=== PATIENT | male | born 1935 | race Caucasian/White ===

== ENCOUNTER 2016-06-09 01:50 | Observation (INO) | payer OTHER ==
[~2016-06-09] VITALS: Ht 175.3 cm; Wt 112.3 kg
[~2016-06-09 01:50] MED LIST: ACT15 PO; AMLO-114 PO; ASPI325T39 PO; ATOR-24 PO; CARV25TA PO; CYCL10TA6 PO; DVN/160 PO; ERGO1CAP35 PO; ESOM1CAP34 PO; FRRS300 PO; FURO-85 PO; KETO0.0216 OP; MAGN400T6 PO; METF-384 PO; OXYC-643 PO; PARO1TAB29 PO; POTA20TA16 PO; TERA1CAP PO
[2016-06-09] MEDS ORDERED: NITROGLYCERIN OINT 2% 1GM PACKET EXT STA (02:02)
[2016-06-09 02:14] LABS: HEMATOCRIT 33.2 % (42-52); MEAN CELL VOLUME 82.4 fL (80-100); MEAN CORPUSCULAR HEMOGLOBIN 28.8 pg (25-34); MEAN CORPUSCULAR HGB CONC 34.9 g/dl (32-36); MEAN PLATELET VOLUME 8.9 fL (7.4-10.4); PLATELET COUNT 291 K/uL (130-400); RED BLOOD COUNT 4.03 M/uL (4.7-6.1); WHITE BLOOD COUNT 8.64 K/uL (4.8-10.8)
[2016-06-09 02:24] LABS: PARTIAL THROMBOPLASTIN RATIO 0.9; PROTHROMBIN TIME (PATIENT) 10.6 SECONDS (9.0-12.0)
--- NOTE | 2016-06-09 02:26 | EMERGENCY ROOM VISIT NOTE ---
History Report prepared by Rocio: Mohsen Mcdonald Under the Supervision of: Dr. Delbert Dickerson M.D. 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 The patient's pain has resolved at this time. He states that he has been having intermittent chest pain for the past week. His pain tonight went into his left chest and radiated into his left shoulder. His pain lasted for about an hour. He rated his pain at that time an 8/10 in severity. He states that he thinks the Aspirin caused the pain to go away. He took two nitroglycerin and 2 baby ASA MINE SAFETY DIRECTOR, and he was given two Aspirin in the ambulance. He is short of breath at his baseline, and was planning on going to [place] to be evaluated. He states that his pain usually occurs when he is walking to get his mail. He denies any diaphoresis or nausea. He notes that he has not had an appetite over the past two months. Source of History: patient Onset: tonight Position: chest (left) Symptom Intensity: 0/10 Quality: other (Resolved) Timing: resolved Modifying Factors (Worsening): movement Associated Symptoms: + SOB, No diaphoresis, No nausea Review of Systems See HPI for pertinent positives & negatives. A total of 10 systems reviewed and were otherwise negative. Past Medical & Surgical Medical Problems: (1) Chest pain (2) COPD (chronic obstructive pulmonary disease) (3) Umbilical hernia Family History Omitted secondary to age. Social History Smoking Status: Never Smoker Alcohol Use: none Drug Use: none Marital Status: Housing Status: lives with family Occupation Status: retired Current/Historical Medications Scheduled Acetaminophen (Tylenol), 500 MG PO BID Aspirin (Aspirin Ec), 325 MG PO DAILY Atorvastatin (Lipitor), 20 MG PO DAILY Carvedilol (Coreg), 25 MG PO Q12 Cyanocobalamin (Cyanocobalamin), 1 ML INJ MONTHLY Ergocalciferol (Vitamin D Cap), 50,000 INTER.UNIT PO WK Esomeprazole Magnesium (Esomeprazole Magnesium), 40 MG PO DAILY Fenofibrate (Tricor), 48 MG PO DAILY Ferrous Sulfate (Ferrous Sulfate), 325 MG PO BID Furosemide (Lasix), 40 MG PO DAILY Insulin Human Regular (Humulin R), 10 UNITS SQ DAILY Levothyroxine Sodium (Levothyroxine Sodium), 175 MCG PO DAILY Magnesium Oxide (Mag-Ox), 420 MG PO DAILY Metformin Hcl (Glucophage), 1,000 MG PO BIDM Nitroglycerin (Nitrostat), 0.4 MG UT PRN Oxycodone/Acetaminophen 5MG/325MG (Oxycodone/Acetaminophen 5MG/325MG), 1 TABLET PO Q4H Paroxetine (Paxil), 40 MG PO DAILY Paroxetine (Paxil), 20 MG PO DAILY Pioglitazone (Actos), 15 MG PO DAILY Potassium Ext Rel (Klor-Con), 20 MEQ PO DAILY Ranitidine (Zantac), 150 MG PO BID Tamsulosin Hcl (Flomax), 0.4 MG PO HS Scheduled PRN Cyclobenzaprine Hcl (Flexeril), 10 MG PO Q8 PRN for BACK SPASMS Ketotifen Fumarate 0.025% Oph (Zaditor 0.025% Oph), 1 DROP OP Q12H PRN for ALLERGIES Oxycodone/Acetaminophen 5MG/325MG (Percocet 5MG/325MG), 1 TABLET PO Q6H PRN for Pain Allergies Coded Allergies: Lisinopril (Verified Allergy, Unknown, ., 11/17/15) Physical Exam Vital Signs Date Time Temp Pulse Resp B/P Pulse Ox O2 Delivery O2 Flow Rate FiO2 06/09/16 02:45 78 20 100/72 98 Room Air 06/09/16 02:10 81 06/09/16 02:07 94 Room Air 06/09/16 01:59 37.1 83 18 151/72 96 Room Air Physical Exam GENERAL: Patient is in no acute distress. HEENT: No acute trauma, normocephalic atraumatic, mucous membranes moist, no nasal congestion, no scleral icterus. NECK: No stridor, no adenopathy, no meningismus, trachea is midline. LUNGS: Decreased breath sounds, equal bilaterally, no wheezing or rhonchi. HEART: 3/6 systolic murmur. Regular rate and rhythm. ABDOMEN: Soft, nontender, bowel sounds positive, no hernias, no peritonitis. EXTREMITIES: No cyanosis, mild bilateral pedal edema, full range of motion of all the joints without pain or difficulty, no signs for acute trauma. NEUROLOGIC: Oriented x 3, no acute motor or sensory deficits, no focal weakness. SKIN: No rash, no jaundice, no diaphoresis. Medical Decision & Procedures ER Provider Diagnostic Interpretation: X-ray results as stated below per interpretation by me: CHEST X-RAY: No CHF, pneumonia, or pneumothorax compared to chest x-ray from last year, no change from prior film, however there is right superior mediastinal fullness which is unchanged from previous. Per me Laboratory Results 06/09/16 02:03 06/09/16 02:03 Test 06/09/16 02:03 Red Blood Count 4.03 M/uL (4.7-6.1) Mean Corpuscular Volume 82.4 fL (80-100) Mean Corpuscular Hemoglobin 28.8 pg (25-34) Mean Corpuscular Hemoglobin Concent 34.9 g/dl (32-36) RDW Standard Deviation 42.0 fL (36.4-46.3) RDW Coefficient of Variation 13.8 % (11.5-14.5) Mean Platelet Volume 8.9 fL (7.4-10.4) Prothrombin Time 10.6 SECONDS (9.0-12.0) Prothromb Time International Ratio 1.0 (0.9-1.1) Activated Partial Thromboplast Time 22.9 SECONDS (21.0-31.0) Partial Thromboplastin Ratio 0.9 Anion Gap 9.0 mmol/L (3-11) Calcium Level 9.0 mg/dl (8.5-10.1) Total Bilirubin 0.6 mg/dl (0.2-1) Aspartate Amino Transf (AST/SGOT) 26 U/L (15-37) Alanine Aminotransferase (ALT/SGPT) 34 U/L (12-78) Alkaline Phosphatase 94 U/L (45-117) Total Protein 7.6 gm/dl (6.4-8.2) Albumin 4.0 gm/dl (3.4-5.0) Globulin 3.6 gm/dl (2.5-4.0) Albumin/Globulin Ratio 1.1 (0.9-2) Laboratory results reviewed by me. Medications Administered Medications (Trade) Dose Ordered Sig/Dimitrios Route Start Time Stop Time Status Last Admin Dose Admin Nitroglycerin 1 inch 1 inch NOW STAT EXT 06/09/16 02:02 06/09/16 02:04 DC 06/09/16 02:10 1 INCH Sodium Chloride (Nss 1000ml) 1,000 ml @ 80 mls/hr [id number] IV 06/09/16 03:35 07/09/16 03:34 06/09/16 05:08 80 MLS/HR ECG Indication: chest pain Rate (beats per minute): 77 Rhythm: normal sinus Findings: LBBB, no acute ischemic change, no ectopy ED Course 0157: The patient was evaluated in room A3. A complete history and physical exam was performed. 0202: Nitroglycerin 1 inch EXT 0254: Sodium Chloride 500 ml @ 999 mls/hr IV 0256: The patient is resting comfortably. 0258: Upon reexamination the patient is resting. I discussed results and treatment plan with the patient. He verbalizes agreement and understanding. The patient will be evaluated by Dr. Anamaria DUARTE, for further management. Medical Decision Differential diagnosis includes but is not limited to myocardial infarction, angina, pulmonary embolism, aortic dissection, anemia, and electrolyte imbalance. There is no leukocytosis or concerning anemia. Renal panel testing shows acute renal failure/dehydration. No significant electrolyte abnormality requiring correction. There was no hepatitis or coagulopathy. EKG showed a normal sinus rhythm with a left bundle branch block, no acute ischemia. There was a slight elevation to the cardiac troponin-this could be consistent with cardiac strain/ injury. Chest x-ray shows no mediastinal widening, pneumonia or pneumothorax. The patient had already received aspirin. In the ER, he received IV saline, he was placed on nitroglycerin paste. He has remained pain free. Admission/observation for further cardiac workup is warranted. I spoke with the patient and case management. The on-call hospitalist was consulted. Consults Time Called: 025 Consulting Physician: Dr. Anamaria DUARTE Returned Call: [phone] He will be evaluating the patient for further management. Impression Primary Impression: Precordial chest pain Additional Impression: Acute renal failure Scribe Attestation The scribe's documentation has been prepared under my direction and personally reviewed by me in its entirety. I confirm that the note above accurately reflects all work, treatment, procedures, and medical decision making performed by me. Departure Information Dispostion Being Evaluated By Hospitalist Referrals Kwaku Moseley M.D. (PCP) Problem Qualifiers
[2016-06-09 02:33] LABS: BUN/CREATININE RATIO 16.6 (10-20); CREATININE 2.7 mg/dl (0.60-1.40); POTASSIUM 4.8 mmol/L (3.5-5.1)
[2016-06-09 02:49] LABS: ALB/GLOB RATIO 1.1 (0.9-2); CKMB/CK RATIO 1.5 (0-3.0)
[2016-06-09] MEDS ORDERED: SODIUM CHLORIDE 0.9% 500ML 500 ML IV STA (02:54)
[2016-06-09] MEDS ORDERED: OXYCODONE/ACETAMINOPHEN 5-325 TAB PO PRN (03:45)
[2016-06-09] MEDS ORDERED: ZOLPIDEM TARTRATE 5 MG TAB PO PRN (03:45)
[2016-06-09] MEDS ORDERED: GLUCOSE 10 TABS/TUBE PO PRN (03:45)
[2016-06-09] MEDS ORDERED: NITROGLYCERIN 0.4 MG SL PER TAB CHARGE SL PRN (03:45)
[2016-06-09] MEDS ORDERED: GLUCAGON FOR INJ 1 MG VIAL SQ PRN (03:45)
[2016-06-09] MEDS ORDERED: ONDANSETRON INJ 2 MG/ML 2 ML VIAL IV PRN (03:45)
[2016-06-09] MEDS ORDERED: DEXTROSE 50% 50 ML SYR IV PRN (03:45)
[2016-06-09] MEDS ORDERED: ACETAMINOPHEN 325 MG TAB PO PRN (03:45)
[2016-06-09] MEDS ORDERED: GLUCOSE 40% GEL 15 GM TUBE PO PRN (03:45)
[2016-06-09] MEDS ORDERED: CYNI1000 INJ (04:09)
[2016-06-09] MEDS ORDERED: FENO48TA9 PO (04:11)
[2016-06-09] MEDS ORDERED: FRS/40 PO (04:13)
[2016-06-09] MEDS ORDERED: INSPMPRGR SQ (04:18)
[2016-06-09] MEDS ORDERED: LEVO175T3 PO (04:25)
[2016-06-09] MEDS ORDERED: NTRGSL/4 UT (04:27)
[2016-06-09] MEDS ORDERED: OXYC-57 PO (04:29)
[2016-06-09] MEDS ORDERED: IV FLUIDS COMPLETED PRN (04:30)
[2016-06-09] MEDS ORDERED: PARO1TAB29 PO (04:31)
--- NOTE | 2016-06-09 04:33 | History and Physical ---
History & Physical Date & Time of Service: Jun 09, 2016 at 04:22. Chief Complaint: Chest Pain Primary Care Physician: Kwaku Moseley M.D. History of Present Illness Source: patient The patient is a 80-year-old male who presents to the emergency department via EMS with complaint of left sided chest pain and shortness of breath present intermittently over the past week, but progressed with radiation into his left chest and left shoulder earlier in the evening. He was given 2 nitroglycerin and 2 aspirin in the ambulance en route, and feels that the pain away. [facility] he was planning a trip transferred be further evaluated. [place] has a [place], and 1 stent in August. Social History Smoking Status: Never Smoker Smokeless Tobacco Use: No Alcohol Use: none Drug Use: none Marital Status: Housing status: lives with family Occupational Status: retired Multi-Drug Resistant Organisms History of MDRO: No Allergies Coded Allergies: Lisinopril (Verified Allergy, Unknown, ., 11/17/15) Home Medications Scheduled Amlodipine (Norvasc), 10 MG PO DAILY Aspirin (Aspirin Ec), 325 MG PO DAILY Atorvastatin (Lipitor), 20 MG PO DAILY Carvedilol (Coreg), 25 MG PO Q12 Cyanocobalamin (Cyanocobalamin), 1 ML INJ MONTHLY Ergocalciferol (Vitamin D Cap), 50,000 INTER.UNIT PO WK Esomeprazole Magnesium (Esomeprazole Magnesium), 40 MG PO DAILY Fenofibrate (Tricor), 48 MG PO DAILY Ferrous Sulfate (Ferrous Sulfate), 325 MG PO BID Furosemide (Lasix), 20 MG PO DAILY Furosemide (Lasix), 40 MG PO DAILY Insulin Human Regular (Humulin R), 10 UNITS SQ DAILY Ketotifen Fumarate 0.025% Oph (Zaditor 0.025% Oph), 1 DROP OP Q12H Magnesium Oxide (Mag-Ox), 420 MG PO DAILY Metformin Hcl (Glucophage), 1,000 MG PO BID Oxycodone/Acetaminophen 5MG/325MG (Oxycodone/Acetaminophen 5MG/325MG), 1 TABLET PO Q4H Paroxetine (Paxil), 40 MG PO DAILY Pioglitazone (Actos), 15 MG PO DAILY Potassium Ext Rel (Klor-Con), 10 MEQ PO DAILY Terazosin Hcl (Hytrin), 1 MG PO BID Valsartan (Diovan), 160 MG PO DAILY Scheduled PRN Cyclobenzaprine Hcl (Flexeril), 10 MG PO Q8 PRN for BACK SPASMS Review of Systems The patient denies palpitations, cough, lower extremity swelling, vision change , hearing change, sore throat, fevers, chills, sweats, weight change, fatigue, nausea, vomiting, abdominal pain, pelvic pain, blood in urine or stool, dysuria , urinary frequency or urgency, lightheadedness, dizziness, headache, memory loss, rash, abnormal bruising or bleeding, imbalance, focal weakness, numbness or tingling in legs, arthralgias or myalgias, back or neck pain, night sweats, or allergy symptoms. The review of systems is otherwise negative other than for that already noted above, and at least 10 systems have been reviewed. Physical Exam Vital Signs Date Time Temp Pulse Resp B/P Pulse Ox O2 Delivery O2 Flow Rate FiO2 06/09/16 04:07 73 18 144/69 96 Room Air 06/09/16 02:45 78 20 100/72 98 Room Air 06/09/16 02:10 81 06/09/16 02:07 94 Room Air 06/09/16 01:59 37.1 83 18 151/72 96 Room Air The patient is awake, well-developed and adequately nourished, alert and oriented 3, normocephalic and atraumatic, lying in bed and in no acute distress. HEENT--PERRL, EOMI, mucous membranes and oropharynx dry. Neck--supple, no JVD or bruits, thyroid normal, trachea midline, no adenopathy. Heart--normal S1 and S2, no extra beats, no murmurs, rubs or gallops. Lungs--diminished throughout, no respiratory distress, no accessory muscle use. Abdomen--normal bowel sounds and soft, nontender and nondistended, no hernias or masses, no organomegaly, and obese. Extremities--no cyanosis, clubbing. There is bilaterally trace pitting Edema. There are good distal pulses b/l. Dermatologic--normal skin turgor, normal color, warm and dry, no abnormal lymph nodes, no rash. Neurologic--cranial nerves II through XII grossly intact, motor and sensory examination normal. Rheumatologic--normal range of motion, nontender, muscles and joints. Psychiatric--normal affect. Diagnostics Laboratory Results Results Past 24 Hours Test 06/09/16 02:03 06/09/16 03:38 06/09/16 04:04 Range/Units White Blood Count 8.64 4.8-10.8 K/uL Red Blood Count 4.03 4.7-6.1 M/uL Hemoglobin 11.6 14.0-18.0 g/dL Hematocrit 33.2 42-52 % Mean Corpuscular Volume 82.4 80-100 fL Mean Corpuscular Hemoglobin 28.8 25-34 pg Mean Corpuscular Hemoglobin Concent 34.9 32-36 g/dl RDW Standard Deviation 42.0 36.4-46.3 fL RDW Coefficient of Variation 13.8 11.5-14.5 % Platelet Count 291 130-400 K/uL Mean Platelet Volume 8.9 7.4-10.4 fL Prothrombin Time 10.6 9.0-12.0 SECONDS Prothromb Time International Ratio 1.0 0.9-1.1 Activated Partial Thromboplast Time 22.9 21.0-31.0 SECONDS Partial Thromboplastin Ratio 0.9 Sodium Level 134 136-145 mmol/L Potassium Level 4.8 3.5-5.1 mmol/L Chloride Level 99 98-107 mmol/L Carbon Dioxide Level 26 21-32 mmol/L Anion Gap 9.0 3-11 mmol/L Blood Urea Nitrogen 45 7-18 mg/dl Creatinine 2.70 0.60-1.40 mg/dl Est Creatinine Clear Calc Drug Dose 28.1 ml/min Estimated GFR () 25.0 Estimated GFR (Non- 21.6 BUN/Creatinine Ratio 16.6 10-20 Random Glucose 297 70-99 mg/dl Calcium Level 9.0 8.5-10.1 mg/dl Total Bilirubin 0.6 0.2-1 mg/dl Aspartate Amino Transf (AST/SGOT) 26 15-37 U/L Alanine Aminotransferase (ALT/SGPT) 34 12-78 U/L Alkaline Phosphatase 94 45-117 U/L Total Creatine Kinase 141 39-308 U/L Creatine Kinase MB 2.1 0.5-3.6 ng/ml Creatine Kinase MB Ratio 1.5 0-3.0 Troponin I 0.049 0-0.045 ng/ml Total Protein 7.6 6.4-8.2 gm/dl Albumin 4.0 3.4-5.0 gm/dl Globulin 3.6 2.5-4.0 gm/dl Albumin/Globulin Ratio 1.1 0.9-2 Diagnostic Radiology Chest x-ray shows no acute findings. EKG EKG shows normal sinus rhythm at 77 bpm, left axis deviation, left bundle branch block, no acute ST-T changes. Impression Assessment and Plan CAD/hypertension/coronary artery stents/CHF/mildly elevated troponin of 0.049-- the patient will be admitted to telemetry unit for serial cardiac enzymes, cardiac rhythm monitoring and a 2-D echocardiogram with Dopplers. We'll continue enteric-coated aspirin 325 mg by mouth daily, carvedilol 25 mg by mouth twice a day, terazosin 1 mg by mouth twice a day, and amlodipine 10 mg by mouth daily. We will hold Lasix 20 mg by mouth daily, potassium extended release 10 mEq by mouth daily and mag oxide 400 mg by mouth daily. Diabetes mellitus--hold pioglitazone 15 mg by mouth daily and metformin 1000 mg by mouth twice a day. Place on Accu-Cheks before meals and at bedtime with NovoLog coverage. Hypercholesterolemia--continue atorvastatin 20 mg by mouth daily. Depression--continue Peroxin 1540 mg by mouth daily. GERD--change Nexium 40 mg by mouth daily to pantoprazole 40 mg by mouth daily. Muscle spasms--continue cyclobenzaprine 10 mg by mouth every 8 hours. Level of Care Telemetry Advanced Directives Existing Advance Directive: No Existing Living Will: No Existing Power of Buckle Inspector: No Resuscitation Status FULL RESUSCITATION VTE Prophylaxis VTE Risk Assessment Done? Y/N: Yes Risk Level: Moderate Given or contraindicated: SCD's
[2016-06-09] MEDS ORDERED: ZNTT/150 PO (04:34)
[2016-06-09] MEDS ORDERED: TAMS0.4C38 PO (04:35)
[2016-06-09 04:36] LABS: CKMB/CK RATIO 1.5 (0-3.0)
[2016-06-09] MEDS ORDERED: ACET-1256 PO (04:36)
[2016-06-09 04:39] VITALS: BP 148/77; PULSE 75; TEMP 37; O2SAT 91; Ht 175.3 cm; Wt 112.3 kg
[2016-06-09] MEDS: SODIUM CHLORIDE 0.9% 1000ML 1,000 ML IV SCH ×2 (05:08→16:36)
[2016-06-09] MEDS ORDERED: PERFLUTREN LIPID MICROSPHERE (DEFINITY) IV ONE (07:13)
--- NOTE | 2016-06-09 07:40 | DIAGNOSTIC IMAGING REPORT ---
CHEST ONE VIEW PORTABLE CLINICAL HISTORY: Atypical chest pain COMPARISON STUDY: 11/17/2015 FINDINGS: The heart is enlarged. There is no failure. There is no lobar consolidation. There is minor basilar atelectasis.[ IMPRESSION: Cardiomegaly and minor basilar atelectasis. No evidence of lobar consolidation Electronically signed by: Shawn Aguilar M.D. 06/09/2016 7:39 AM Dictated Date/Time: 06/09/2016 7:38 AM
[2016-06-09] MEDS: PANTOprazole SOD 40 MG TAB PO SCH (07:45)
[2016-06-09] MEDS: ATORVASTATIN 20 MG TAB PO SCH (07:45)
[2016-06-09] MEDS: CARVEDILOL 25 MG TAB PO SCH ×2 (07:46→20:27)
[2016-06-09] MEDS: ASPIRIN 325 MG ECTAB PO SCH (07:46)
[2016-06-09] MEDS: PAROXETINE 20 MG TAB PO SCH (07:46)
[2016-06-09] MEDS: INSULIN ASPART 100 UNITS/ML 3 ML PEN SC SCH ×4 (07:49→20:30)
[2016-06-09 08:46] VITALS: BP 125/61; PULSE 90; TEMP 36.6; O2SAT 94
[2016-06-09 12:12] VITALS: BP 145/80; PULSE 77; TEMP 36.8; O2SAT 92
[2016-06-09 12:25] LABS: CKMB/CK RATIO 1.5 (0-3.0)
--- NOTE | 2016-06-09 14:00 | ECHOCARDIOGRAM REPORT ---
*NOTICE TO RECEIVING DEMOCRAT AGENCY This information is strictly Confidential and protected under [place] law. [place] law prohibits you from making any further disclosure of this information unless further disclosure is expressly permitted by the written consent of the person to whom it pertains or is authorized by law. A general authorization for the release of medical or other information is not sufficient for this purpose. Hospital accepts no responsibility if the information is made available to any other person, INCLUDING THE PATIENT. Interpretation Summary * Name: KERRIE LIMA Study Date: 06/09/2016 06:48 AM BP: 148/77 mmHg * Patient Location: C.2T\S\S238\S\2 HR: 75 * : 1935 (M/d/yyyy) Gender: Male Height: 69 in * Age: 80 yrs Ethnicity: CA Weight: 251 lb * Ordering Physician: Allen Conrad * Performed By: Karo Booth * * Reason For Study: ELEVATED TROP * BSA: 2.3 m2 * -- Conclusions -- * 1. Mildly dilated LV with mild concentric LVH and basal septal thickening. * 2. Moderate LV dysfunction. LVEF 40-45%. The septum, anteroseptum, distal anterior wall, apex and inferior foreman are akinetic. * 3. Normal RV size and function. * 4. Mild aortic stenosis. * 5. Mild to moderate aortic regurgitation. * 6. Grade II diastolic dyfunction. * 7. Compared with prior study on 11/18/2015: No significant changes. Procedure Details * A complete two-dimensional transthoracic echocardiogram was performed (2D, M-mode, Doppler and color flow Doppler). * A contrast injection of Definity was performed to improve assessment of LV function. * Contrast was injected into an intravenous site in the left arm. * One vial of Definity ultrasound contrast was diluted in normal saline to a total volume of 10 ml. A total of '2' ml of solution was administered during imaging. * Lot # [id number] of Definity utilized for procedure. * Expiration date 06/25. Left Ventricle * The left ventricle is mildly dilated. * There is mild concentric left ventricular hypertrophy. * Focal thickening of the basal septum with no evidence of left ventricular outflow obstruction. * Ejection Fraction = 40-45%. * The septum, anteroseptum, distal anterior wall, apex and inferior foreman are akinetic. Right Ventricle * The right ventricle is grossly normal size. * The right ventricular systolic function is normal. Atria * The left atrial size is normal. * Right atrial size is normal. * No ASD detected; PFO is not assessed. Mitral Valve * There is mild to moderate mitral annular calcification. * Mitral stenosis is absent. * There is trace mitral regurgitation. Tricuspid Valve * The tricuspid valve is not well visualized. * There is trace tricuspid regurgitation. Aortic Valve * Mild valvular aortic stenosis. * Mild to moderate aortic regurgitation. Pulmonic Valve * The pulmonary valve is inadequately visualized, but the Doppler data is adequate for interpretation. * There is no pulmonic valvular stenosis. * Trace pulmonic valvular regurgitation. Great Vessels * The aortic root and proximal ascending aorta are normal sized. Left Ventricular Diastolic Function * Diastolic dysfunction, Grade II, consistent with elevated left atrial pressure. MMode 2D Measurements and Calculations IVSd 2.1 cm IVSs 3.4 cm LVIDd 5.7 cm LVIDs 4.4 cm LVPWd 1.3 cm LVPWs 2.5 cm IVS/LVPW 1.6 FS 22.8 % EDV(Teich) 161.3 ml ESV(Teich) 88.3 ml EF(Teich) 45.3 % EDV(cubed) 187.1 ml ESV(cubed) 86.0 ml EF(cubed) 54.1 % % IVS thick 60.6 % % LVPW thick 88.4 % LV mass(C)d 482.6 grams LV mass(C)dI 212.1 grams/m\S\2 LV mass(C)s 835.7 grams LV mass(C)sI 367.3 grams/m\S\2 SV(Teich) 73.0 ml SI(Teich) 32.1 ml/m\S\2 SV(cubed) 101.2 ml SI(cubed) 44.5 ml/m\S\2 ACS 0.96 cm LA dimension 4.7 cm asc Aorta Diam 3.3 cm LVOT diam 1.9 cm LVOT area 2.8 cm\S\2 LVAd ap4 55.8 cm\S\2 LVLd ap4 10.9 cm EDV(MOD-sp4) 232.0 ml EDV(sp4-el) 242.9 ml LVAs ap4 39.9 cm\S\2 LVLs ap4 10.3 cm ESV(MOD-sp4) 130.5 ml ESV(sp4-el) 131.4 ml EF(MOD-sp4) 43.8 % EF(sp4-el) 45.9 % LVAd ap2 51.5 cm\S\2 LVLd ap2 10.4 cm EDV(MOD-sp2) 208.6 ml EDV(sp2-el) 217.3 ml LVAs ap2 37.8 cm\S\2 LVLs ap2 9.7 cm ESV(MOD-sp2) 117.8 ml ESV(sp2-el) 125.1 ml EF(MOD-sp2) 43.5 % EF(sp2-el) 42.4 % LVLd %diff -4.74 % EDV(MOD-bp) 222.6 ml LVLs %diff -6.14 % ESV(MOD-bp) 126.1 ml EF(MOD-bp) 43.3 % SV(MOD-sp4) 101.6 ml SI(MOD-sp4) 44.6 ml/m\S\2 SV(MOD-sp2) 90.8 ml SI(MOD-sp2) 39.9 ml/m\S\2 SV(MOD-bp) 96.4 ml SI(MOD-bp) 42.4 ml/m\S\2 SV(sp4-el) 111.5 ml SI(sp4-el) 49.0 ml/m\S\2 SV(sp2-el) 92.2 ml SI(sp2-el) 40.5 ml/m\S\2 Doppler Measurements and Calculations MV E max eric 143.6 cm/sec MV dec time 0.19 sec Ao V2 max 260.1 cm/sec Ao max PG 27.1 mmHg Ao max PG (full) 22.7 mmHg Ao V2 mean 181.7 cm/sec Ao mean PG 14.9 mmHg Ao V2 VTI 53.8 cm JUMANA(V,A) 1.1 cm\S\2 JUMANA(V,D) 1.1 cm\S\2 AI max eric 420.2 cm/sec AI max PG 70.6 mmHg AI dec slope 299.5 cm/sec\S\2 AI P1/2t 410.9 msec LV V1 max PG 4.4 mmHg LV V1 max 104.5 cm/sec PA V2 max 84.7 cm/sec PA max PG 2.9 mmHg PI end-d eric 141.2 cm/sec
[2016-06-09 15:37] VITALS: BP 128/66; PULSE 88; TEMP 36.6; O2SAT 95
[2016-06-09 15:43] LABS: BUN/CREATININE RATIO 17.7 (10-20); CREATININE 2.4 mg/dl (0.60-1.40)
[2016-06-09] MEDS ORDERED: NURSING VERBAL MED ORDER ONE (17:00)
[2016-06-09] MEDS ORDERED: INSULIN ASPART 100 UNITS/ML 3 ML PEN SC SCH (17:15)
[2016-06-09] MEDS ORDERED: LANTUS PER UNIT CHARGE SQ SCH (17:15)
[2016-06-09 19:21] VITALS: BP 126/66; PULSE 94; TEMP 36.5; O2SAT 94
[2016-06-09 20:43] LABS: CKMB/CK RATIO 1.2 (0-3.0)
[2016-06-10] VITALS: BP 149/78; PULSE 86; TEMP 36.7; O2SAT 92
[2016-06-10] MEDS ORDERED: NURSING VERBAL MED ORDER ONE (02:00)
[2016-06-10] MEDS ORDERED: LORAZEPAM 2 MG/ML 1 ML VIAL IV STA (02:08)
[2016-06-10 04:18] VITALS: BP 145/74; PULSE 88; TEMP 36.4; O2SAT 96
[2016-06-10] MEDS: SODIUM CHLORIDE 0.9% 1000ML 1,000 ML IV SCH (04:49)
[2016-06-10 06:04] VITALS: O2SAT 90
[2016-06-10 06:41] LABS: BASO % 0.3 %; BASO ABS # 0.03 K/uL (0-0.2); COMPLETE YES; EOS % 3.6 %; HEMATOCRIT 34.3 % (42-52); IG% 0.5 %; LYMPH % 27.9 %; LYMPH ABS # 2.41 K/uL (1.2-3.4); MEAN CELL VOLUME 85.3 fL (80-100); MEAN CORPUSCULAR HEMOGLOBIN 28.9 pg (25-34); MEAN CORPUSCULAR HGB CONC 33.8 g/dl (32-36); MEAN PLATELET VOLUME 9.3 fL (7.4-10.4); MONO % 6.4 %; NEUT % 61.3 %; PLATELET COUNT 291 K/uL (130-400); RED BLOOD COUNT 4.02 M/uL (4.7-6.1); WHITE BLOOD COUNT 8.63 K/uL (4.8-10.8)
[2016-06-10 07:15] LABS: BUN/CREATININE RATIO 15.2 (10-20); CALCIUM 8.9 mg/dl (8.5-10.1); CREATININE 1.8 mg/dl (0.60-1.40); MAGNESIUM 2.3 mg/dl (1.8-2.4); POTASSIUM 4.2 mmol/L (3.5-5.1)
[2016-06-10 07:31] VITALS: BP 162/82; PULSE 81; TEMP 36.5; O2SAT 94
[2016-06-10] MEDS: INSULIN ASPART 100 UNITS/ML 3 ML PEN SC SCH ×2 (07:31→12:00)
[2016-06-10 07:41] LABS: ESTIMATED AVERAGE GLUCOSE 255 mg/dl; HA1C FLAG Normal (Normal)
[2016-06-10] MEDS: CARVEDILOL 25 MG TAB PO SCH (08:12)
[2016-06-10] MEDS: ASPIRIN 325 MG ECTAB PO SCH (08:12)
[2016-06-10] MEDS: PAROXETINE 20 MG TAB PO SCH (08:12)
[2016-06-10] MEDS: PANTOprazole SOD 40 MG TAB PO SCH (08:12)
[2016-06-10] MEDS: ATORVASTATIN 20 MG TAB PO SCH (08:12)
--- NOTE | 2016-06-10 10:02 | Discharge Instructions ---
Discharge Instructions Date of Service Jun 10, 2016. Admission Reason for Admission: Acute Renal Failure, Precordial Chest Pain Discharge Discharge Diagnosis / Problem: Atypical chest pain, acute renal failure Discharge Goals Goal(s): Decrease discomfort, Improve function, Increase independence, Improve disease control, Diagnostic testing, Therapeutic intervention Activity Recommendations Activity Limitations: resume your previous activity Exercise/Sports Limitations: none Patient to be discharged home Chest pain unlikely to be from the heart Continue all home medications, no changes made Will need to follow up with primary care doctor Dr. Moseley in 1-2 weeks If worsening chest pain, shortness of breath, palpitations please report to ER Current Hospital Diet Patient's current hospital diet: AHA Diet (Heart Healthy), Diabetes Type 2 Diet Discharge Diet Recommended Diet: Diabetes Type 2 Diet Pending Studies Studies pending at discharge: no Laboratory Results Hemoglobin A1c Test 06/09/16 02:03 Range/Units Estimated Average Glucose 255 mg/dl Hemoglobin A1c 10.5 H 4.5-5.6 % Medical Emergencies . Who to Call and When: Medical Emergencies: If at any time you feel your situation is an emergency, please call 911 immediately. . Non-Emergent Contact Non-Emergency issues call your: Primary Care Provider Call Non-Emergent contact if: your pain is worsening . . "Provider Documentation" section prepared by Yrn Vincent. VTE Core Measure Inpt VTE Proph given/why not?: SCD's
[2016-06-10 10:10] VITALS: BP 162/82; PULSE 81; TEMP 36.5; O2SAT 94
--- NOTE | 2016-06-10 10:54 | Discharge Summary ---
Discharge Summary Date of Service Jun 10, 2016. Discharge Summary Admission Date: Jun 09, 2016 at 03:35 Discharge Date: Jun 10, 2016 Discharge Disposition: Home Principal Diagnosis: Chest pain, acute kidnet injury Medication Reconciliation Continued Medications: Acetaminophen (Tylenol) 500 Mg Tab 500 MG PO BID, TAB Aspirin (Aspirin Ec) 325 Mg Tab 325 MG PO DAILY Atorvastatin (Lipitor) 40 Mg Tab 20 MG PO DAILY, TAB Carvedilol (Coreg) 25 Mg Tab 25 MG PO Q12, TAB Cyanocobalamin (Cyanocobalamin) 1,000 Mcg/Ml Inj 1 ML INJ MONTHLY Cyclobenzaprine Hcl (Flexeril) 10 Mg Tab 10 MG PO Q8 PRN for BACK SPASMS, TAB Ergocalciferol (Vitamin D Cap) 50,000 Interunit Cap 43640 INTER.UNIT PO WK, CAP TAKE EVERY FRIDAY Esomeprazole Magnesium (Esomeprazole Magnesium) 40 Mg Cap 40 MG PO DAILY, #30 CAP 3 Refills Fenofibrate (Tricor) 48 Mg Tab 48 MG PO DAILY, TAB Ferrous Sulfate (Ferrous Sulfate) 325 Mg Tab 325 MG PO BID Furosemide (Lasix) 40 Mg Tab 40 MG PO DAILY, TAB Insulin Human Regular (Humulin R) 1 Ea Inj 10 UNITS SQ DAILY TAKE AT SAME TIME EACH DAY - 6:00 PM Ketotifen Fumarate 0.025% Oph (Zaditor 0.025% Oph) Soln 1 DROP OP Q12H PRN for ALLERGIES, BTL Levothyroxine Sodium (Levothyroxine Sodium) 175 Mcg Tab 175 MCG PO DAILY, TAB Magnesium Oxide (Mag-Ox) 400 Mg Tab 420 MG PO DAILY, TAB Metformin Hcl (Glucophage) 1,000 Mg Tab 1000 MG PO BIDM, TAB Nitroglycerin (Nitrostat) 0.4 Mg Tab 0.4 MG UT PRN, BTL NEEDED FOR CHEST PAIN : ONE TABLET UBDER THE TONGUE EVERY 5 MINUTES UP TO 3 DOSES. Oxycodone/Acetaminophen 5MG/325MG (Oxycodone/Acetaminophen 5MG/325MG) 1 Tab Tab 1 TABLET PO Q4H, TAB Oxycodone/Acetaminophen 5MG/325MG (Percocet 5MG/325MG) Tab 1 TABLET PO Q6H PRN for Pain, TAB PAIN Paroxetine (Paxil) 40 Mg Tab 40 MG PO DAILY, TAB Paroxetine (Paxil) 40 Mg Tab 20 MG PO DAILY, TAB 1/2 TABLET DOSE Pioglitazone (Actos) 15 Mg Tab 15 MG PO DAILY Potassium Ext Rel (Klor-Con) 20 Meq Tabcr 20 MEQ PO DAILY, TAB Ranitidine (Zantac) 150 Mg Tab 150 MG PO BID, TAB Tamsulosin Hcl (Flomax) 0.4 Mg Cap 0.4 MG PO HS, CAP Discharge Exam Review of Systems: Constitutional: No chills, No fever Respiratory: No cough, No dyspnea on exertion, No shortness of breath, No sputum, No wheezing Cardiovascular: No chest pain, No orthopnea Abdomen: No diarrhea, No nausea, No pain, No vomiting Musculoskeletal: No joint pain, No muscle pain Genitourinary - Male: No dysuria, No hematuria Physical Exam: General Appearance: WD/WN, no apparent distress Eyes: PERRL, EOMI Neck: supple, no adenopathy Respiratory/Chest: chest non-tender, lungs clear Cardiovascular: no gallop, no JVD Neurologic/Psychiatric: alert, oriented x 3 Hospital Course CAD/hypertension/coronary artery stents/CHF/mildly elevated troponin of 0.049-- the patient was admitted to telemetry unit for serial cardiac enzymes, cardiac rhythm monitoring and a 2-D echocardiogram with Dopplers. We'll continue enteric-coated aspirin 325 mg by mouth daily, carvedilol 25 mg by mouth twice a day, terazosin 1 mg by mouth twice a day, and amlodipine 10 mg by mouth daily. We will hold Lasix 20 mg by mouth daily, potassium extended release 10 mEq by mouth daily and mag oxide 400 mg by mouth daily. ECHO completed unchanged from prior ECHO, * Moderate LV dysfunction. LVEF 40-45%. The septum, anteroseptum, distal anterior wall, apex and inferior foreman are akinetic. Pt reported no further chest pain during hospital course, trops x 3 sets only mildly elevated Discharged home Acute kidney injury - Improved with hydration, will likely need to recheck at a later day as outpatient Diabetes mellitus--hold pioglitazone 15 mg by mouth daily and metformin 1000 mg by mouth twice a day. Place on Accu-Cheks before meals and at bedtime with NovoLog coverage. Hypercholesterolemia--continue atorvastatin 20 mg by mouth daily. Depression--continue Peroxin 1540 mg by mouth daily. GERD--change Nexium 40 mg by mouth daily to pantoprazole 40 mg by mouth daily. Muscle spasms--continue cyclobenzaprine 10 mg by mouth every 8 hours. Total Time Spent: Greater than 30 minutes This includes examination of the patient, discharge planning, medication reconciliation, and communication with other providers. Discharge Instructions Please refer to the electronic Patient Visit Report (Discharge Instructions) for additional information. Additional Copies To Kwaku Moseley M.D.
[2016-12-24] MEDS ORDERED: PLV75 PO (11:11)
[2016-12-24] MEDS ORDERED: INSDGIPEN SC (11:11)
[2016-12-24] MEDS ORDERED: ASPEC81 PO (11:11)
[2016-12-24] MEDS ORDERED: CZR25 PO (18:16)
== END 2016-06-10 11:59 | disposition home or self-care (01) ==
LOC: ENRESERVTM → ENRESERVDT → EDBD 01:50 → C.EDA 01:51 → C.2T 03:35
PROVIDERS: ADMIT Hospitalist; ATTEND Hospitalist
DX: R07.9 Chest pain, unspecified (principal); N17.9 Acute kidney failure, unspecified; R06.02 Shortness of breath; J44.9 Chronic obstructive pulmonary disease, unspecified; I25.10 Atherosclerotic heart disease of native coronary artery without angina pectoris; I11.0 Hypertensive heart disease with heart failure; E11.9 Type 2 diabetes mellitus without complications; E78.00 Pure hypercholesterolemia, unspecified; I50.9 Heart failure, unspecified; F32.9 Major depressive disorder, single episode, unspecified; K21.9 Gastro-esophageal reflux disease without esophagitis; M62.838 Other muscle spasm; Z79.899 Other long term (current) drug therapy; Z79.82 Long term (current) use of aspirin; Z79.4 Long term (current) use of insulin; Z95.5 Presence of coronary angioplasty implant and graft

== ENCOUNTER 2016-06-13 16:09 | Observation (INO) | payer OTHER ==
[~2016-06-13] VITALS: Ht 175.3 cm; Wt 112.8 kg
[~2016-06-13 16:09] MED LIST changes: +ACET-1256 PO; -AMLO-114 PO; +CYNI1000 INJ; -DVN/160 PO; +FENO48TA9 PO; +FRS/40 PO; -FURO-85 PO; +INSPMPRGR SQ; +LEVO175T3 PO; +NTRGSL/4 UT; +OXYC-57 PO; +TAMS0.4C38 PO; -TERA1CAP PO; +ZNTT/150 PO
[2016-06-13] MEDS ORDERED: SODIUM CHLORIDE 0.9% 1000ML 1,000 ML IV STA (16:23)
[2016-06-13] MEDS ORDERED: ERGO500037 PO (17:02)
[2016-06-13] MEDS ORDERED: NXM/40 PO (17:02)
[2016-06-13] MEDS ORDERED: KETO1DRO13 OP (17:02)
[2016-06-13] MEDS ORDERED: ASPI81TA28 PO (17:05)
--- NOTE | 2016-06-13 17:05 | DIAGNOSTIC IMAGING REPORT ---
CHEST ONE VIEW PORTABLE CLINICAL HISTORY: Weakness COMPARISON STUDY: 06/09/2016 FINDINGS: The heart is enlarged. There is no failure. There is no lobar consolidation. Increased basilar markings remain similar to the prior study and are likely atelectatic.[ IMPRESSION: Cardiomegaly. Bibasilar atelectasis. No evidence of lobar consolidation Electronically signed by: Shawn Aguilar M.D. 06/13/2016 5:03 PM Dictated Date/Time: 06/13/2016 5:02 PM
[2016-06-13 17:14] LABS: BASO % 0.2 %; BASO ABS # 0.02 K/uL (0-0.2); COMPLETE YES; EOS % 2.9 %; HEMATOCRIT 37.2 % (42-52); IG% 0.8 %; LYMPH % 19.4 %; LYMPH ABS # 1.63 K/uL (1.2-3.4); MEAN CELL VOLUME 85.7 fL (80-100); MEAN CORPUSCULAR HEMOGLOBIN 28.8 pg (25-34); MEAN CORPUSCULAR HGB CONC 33.6 g/dl (32-36); MEAN PLATELET VOLUME 8.7 fL (7.4-10.4); MONO % 5.8 %; NEUT % 70.9 %; PLATELET COUNT 323 K/uL (130-400); RED BLOOD COUNT 4.34 M/uL (4.7-6.1); WHITE BLOOD COUNT 8.41 K/uL (4.8-10.8)
[2016-06-13 17:26] LABS: INR 0.9 (0.9-1.1); PARTIAL THROMBOPLASTIN RATIO 0.9
[2016-06-13 17:36] LABS: BUN/CREATININE RATIO 11.5 (10-20); CALCIUM 9.3 mg/dl (8.5-10.1); MAGNESIUM 2.1 mg/dl (1.8-2.4); POTASSIUM 5.1 mmol/L (3.5-5.1)
[2016-06-13 17:46] LABS: BETA-HYDROXYBUTYRATE 1.12 mg/dL (0.2-2.81); CKMB/CK RATIO 1.7 (0-3.0); THYROID STIMULATING HORMONE 6.38 uIu/ml (0.300-4.500)
[2016-06-13 18:48] LABS: URINE APPEARANCE CLEAR (CLEAR); URINE BILIRUBIN NEG (NEG); URINE COLOR YELLOW; URINE NITRITE NEG (NEG); URINE SPECIFIC GRAVITY 1.018 (1.000-1.030); UROBILINOGEN NEG (NEG)
[2016-06-13 18:54] LABS: MANUAL MICROSCOPIC REQUIRED? NO; REVIEW REQ? NO
[2016-06-13] MEDS ORDERED: LORAZEPAM 2 MG/ML 1 ML VIAL IV PRN ×4 (19:00→21:00)
[2016-06-13] MEDS ORDERED: MAGNESIUM HYDROXIDE SUSP 30 ML UDC PO PRN (19:00)
[2016-06-13] MEDS ORDERED: CYCLOBENZAPRINE HCL 10 MG TAB PO PRN (19:00)
[2016-06-13] MEDS ORDERED: OXYCODONE HCL IR 5 MG TAB (IMMEDIATE RELEASE) PO PRN (19:00)
[2016-06-13] MEDS ORDERED: MoRPHine SULFATE 2 MG/ML CARP IV PRN (19:00)
[2016-06-13] MEDS ORDERED: ONDANSETRON INJ 2 MG/ML 2 ML VIAL IV PRN (19:00)
[2016-06-13] MEDS ORDERED: NITROGLYCERIN 0.4 MG SL PER TAB CHARGE SL PRN (19:00)
[2016-06-13] MEDS ORDERED: ACETAMINOPHEN 325 MG TAB PO PRN (19:00)
[2016-06-13] MEDS ORDERED: LORAZEPAM 0.5 MG TAB PO PRN (19:00)
[2016-06-13] MEDS ORDERED: MoRPHine SULFATE 4 MG/ML 1 ML CARP\\VIAL IV PRN (19:00)
[2016-06-13] MEDS ORDERED: NITROGLYCERIN 0.4 MG SL PER TAB CHARGE UT SCH (19:00)
[2016-06-13] MEDS ORDERED: POLYETHYLENE (MIRALAX) 17 GM PACK PO PRN (19:00)
[2016-06-13] MEDS ORDERED: ALUMINUM/MAGNESIUM/SIMETH (MAALOX MAX) 30 ML UDC PO PRN (19:00)
[2016-06-13] MEDS ORDERED: SODIUM CHLORIDE 0.9% 500ML 500 ML IV SCH (19:30)
[2016-06-13] MEDS ORDERED: METOPROLOL TARTRATE 1 MG/ML VIAL IV PRN (19:30)
[2016-06-13] MEDS ORDERED: HydrALAZINE HCL 20 MG/ML VIAL IV PRN (19:30)
[2016-06-13] MEDS ORDERED: IV FLUIDS COMPLETED PRN (19:45)
[2016-06-13 20:30] VITALS: BP 114/67; TEMP 36.7; O2SAT 94; BMI 37.7
[2016-06-13 20:35] VITALS: BP 161/79; PULSE 87; TEMP 36.5; O2SAT 94
[2016-06-13] MEDS ORDERED: ACETAMINOPHEN 500 MG TAB PO SCH (21:00)
[2016-06-13] MEDS ORDERED: TAMSULOSIN HCL 0.4 MG CAP PO SCH (21:00)
[2016-06-13] MEDS ORDERED: INSULIN GLARGINE SOLOSTAR 100 UNITS/ML 3 ML PEN SC SCH (21:00)
[2016-06-13] MEDS ORDERED: LORAZEPAM INJ 0.5 MG in SYRINGE 0.75 ML IV PRN (21:00)
[2016-06-13] MEDS ORDERED: LORAZEPAM INJ 1 MG in SYRINGE 0.5 ML IV PRN (21:00)
--- NOTE | 2016-06-13 21:30 | EMERGENCY ROOM VISIT NOTE ---
History Report prepared by Rocio: Virgil Kaur Under the Supervision of: Dr. Hussein Bee M.D. First contact with patient: 16:17 Chief Complaint: ANXIETY Stated Complaint: PANIC ATTACK History of Present Illness The patient is a 80 year old male who presents to the Emergency Room with complaints of episodes of chest pains occurring earlier today. He notes he currently feels dizzy, and also felt dizzy earlier today. He reports he developed chest pains earlier that lasted a few minutes, but they have since resolved. He took 4 Aspirin today and tried to lie down but was unable to. The patient usually uses a cane at baseline. He adds feeling sore on his right side that is worse with palpation. The patient reports feeling stressed recently because of ongoing health issues with his brothers. The patient was discharged from the hospital 3 days ago with acute kidney injury and elevated troponin. He summoned EMS himself today. Pt denies LOC, headache, fevers, chills, diaphoresis, visual changes, neck pain , breathing difficulties, nausea, vomiting, back pain, melena, hematochezia, urinary symptoms, numbness, weakness, lymphadenopathy, rash, or other complaints. Source of History: patient Onset: earlier today Position: chest Symptom Intensity: episodes lasting a few minutes Quality: other (chest pain) Timing: other (episodes) Note: The patient has had dizziness and right flank pain. Review of Systems See HPI for pertinent positives and negatives. A total of ten systems were reviewed and were otherwise negative. Past Medical & Surgical Medical Problems: (1) Chest pain (2) COPD (chronic obstructive pulmonary disease) (3) Umbilical hernia Family History No pertinent family history stated. Social History Smoking Status: Never Smoker Alcohol Use: none Drug Use: none Marital Status: Housing Status: lives with family Occupation Status: retired Current/Historical Medications Scheduled Acetaminophen (Tylenol), 500 MG PO BID Aspirin (Aspirin Ec), 325 MG PO DAILY Aspirin (Aspirin Ec), 81 MG PO DIRECTED Atorvastatin (Lipitor), 20 MG PO DAILY Carvedilol (Coreg), 25 MG PO Q12 Cyanocobalamin (Cyanocobalamin), 1 ML INJ MONTHLY Ergocalciferol (Vitamin D 74092 Unit), 50,000 UNIT PO WK Esomeprazole Magnesium (Nexium), 40 MG PO DAILY Fenofibrate (Tricor), 48 MG PO DAILY Ferrous Sulfate (Ferrous Sulfate), 325 MG PO BID Furosemide (Lasix), 40 MG PO DAILY Insulin Human Regular (Humulin R), 10 UNITS SQ DAILY Levothyroxine Sodium (Levothyroxine Sodium), 175 MCG PO DAILY Magnesium Oxide (Mag-Ox), 420 MG PO DAILY Metformin Hcl (Glucophage), 1,000 MG PO BIDM Nitroglycerin (Nitrostat), 0.4 MG UT PRN Oxycodone/Acetaminophen 5MG/325MG (Oxycodone/Acetaminophen 5MG/325MG), 1 TABLET PO Q4H Paroxetine (Paxil), 40 MG PO DAILY Paroxetine (Paxil), 20 MG PO DAILY Pioglitazone (Actos), 15 MG PO DAILY Potassium Ext Rel (Klor-Con), 20 MEQ PO DAILY Ranitidine (Zantac), 150 MG PO BID Tamsulosin Hcl (Flomax), 0.4 MG PO HS Scheduled PRN Cyclobenzaprine Hcl (Flexeril), 10 MG PO Q8 PRN for BACK SPASMS Ketotifen Fumarate (Ophth) (Thera Tears Allergy Eye I), 1 DROP OP Q12 PRN for ALLERGIC REACTION Oxycodone/Acetaminophen 5MG/325MG (Percocet 5MG/325MG), 1 TABLET PO Q6H PRN for Pain Allergies Coded Allergies: Lisinopril (Verified Allergy, Unknown, ., 06/13/16) Physical Exam Vital Signs Date Time Temp Pulse Resp B/P Pulse Ox O2 Delivery O2 Flow Rate FiO2 06/13/16 18:35 81 22 184/87 95 Room Air 06/13/16 16:38 97 Room Air 06/13/16 16:20 76 06/13/16 16:14 36.8 85 24 110/68 95 Room Air Physical Exam GENERAL: Awake, alert, well-appearing, in no distress HENT: Normocephalic, atraumatic. Oropharynx unremarkable. EYES: Normal conjunctiva. Sclera non-icteric. NECK: Supple. No nuchal rigidity. FROM. No JVD. RESPIRATORY: Clear to auscultation. CARDIAC: Regular rate, normal rhythm. Extremities warm and well perfused. Pulses equal. ABDOMEN: Soft, non-distended. No tenderness to palpation. No rebound or guarding. No masses. RECTAL: Deferred. MUSCULOSKELETAL: Chest examination reveals no tenderness. The back is symmetrical on inspection without obvious abnormality. There is no CVA tenderness to palpation. No joint edema. LOWER EXTREMITIES: Calves are equal size bilaterally and non-tender. Trace lower extremity edema. No discoloration. NEURO: Normal sensorium. No sensory or motor deficits noted. SKIN: No rash or jaundice noted. Medical Decision & Procedures ER Provider Diagnostic Interpretation: Radiology results as stated below per my review and radiologist interpretation CHEST ONE VIEW PORTABLE CLINICAL HISTORY: Weakness COMPARISON STUDY: 06/09/2016 FINDINGS: The heart is enlarged. There is no failure. There is no lobar consolidation. Increased basilar markings remain similar to the prior study and are likely atelectatic. IMPRESSION: Cardiomegaly. Bibasilar atelectasis. No evidence of lobar consolidation Electronically signed by: Shawn Aguilar M.D. 06/13/2016 5:03 PM Dictated Date/Time: 06/13/2016 5:02 PM Laboratory Results 06/13/16 17:00 Red Blood Count 4.34, Mean Corpuscular Volume 85.7, Mean Corpuscular Hemoglobin 28.8, Mean Corpuscular Hemoglobin Concent 33.6, Mean Platelet Volume 8.7, Neutrophils (%) (Auto) 70.9, Lymphocytes (%) (Auto) 19.4, Monocytes (%) (Auto) 5.8, Eosinophils (%) (Auto) 2.9, Basophils (%) (Auto) 0.2, Neutrophils # (Auto) 5.96, Lymphocytes # (Auto) 1.63, Monocytes # (Auto) 0.49, Eosinophils # (Auto) 0.24, Basophils # (Auto) 0.02 06/13/16 17:00 Test 06/13/16 17:00 06/13/16 18:40 White Blood Count 8.41 K/uL (4.8-10.8) Red Blood Count 4.34 M/uL (4.7-6.1) Hemoglobin 12.5 g/dL (14.0-18.0) Hematocrit 37.2 % (42-52) Mean Corpuscular Volume 85.7 fL (80-100) Mean Corpuscular Hemoglobin 28.8 pg (25-34) Mean Corpuscular Hemoglobin Concent 33.6 g/dl (32-36) Platelet Count 323 K/uL (130-400) Mean Platelet Volume 8.7 fL (7.4-10.4) Neutrophils (%) (Auto) 70.9 % Lymphocytes (%) (Auto) 19.4 % Monocytes (%) (Auto) 5.8 % Eosinophils (%) (Auto) 2.9 % Basophils (%) (Auto) 0.2 % Neutrophils # (Auto) 5.96 K/uL (1.4-6.5) Lymphocytes # (Auto) 1.63 K/uL (1.2-3.4) Monocytes # (Auto) 0.49 K/uL (0.11-0.59) Eosinophils # (Auto) 0.24 K/uL (0-0.5) Basophils # (Auto) 0.02 K/uL (0-0.2) RDW Standard Deviation 43.9 fL (36.4-46.3) RDW Coefficient of Variation 14.1 % (11.5-14.5) Immature Granulocyte % (Auto) 0.8 % Immature Granulocyte # (Auto) 0.07 K/uL (0.00-0.02) Prothrombin Time 10.0 SECONDS (9.0-12.0) Prothromb Time International Ratio 0.9 (0.9-1.1) Activated Partial Thromboplast Time 23.6 SECONDS (21.0-31.0) Partial Thromboplastin Ratio 0.9 Anion Gap 8.0 mmol/L (3-11) Est Creatinine Clear Calc Drug Dose 38.2 ml/min Estimated GFR () 36.0 Estimated GFR (Non- 31.0 BUN/Creatinine Ratio 11.5 (10-20) Calcium Level 9.3 mg/dl (8.5-10.1) Magnesium Level 2.1 mg/dl (1.8-2.4) Total Bilirubin 0.5 mg/dl (0.2-1) Direct Bilirubin 0.1 mg/dl (0-0.2) Aspartate Amino Transf (AST/SGOT) 25 U/L (15-37) Alanine Aminotransferase (ALT/SGPT) 38 U/L (12-78) Alkaline Phosphatase 112 U/L (45-117) Total Creatine Kinase 114 U/L (39-308) Creatine Kinase MB 1.9 ng/ml (0.5-3.6) Creatine Kinase MB Ratio 1.7 (0-3.0) Troponin I 0.031 ng/ml (0-0.045) Total Protein 8.0 gm/dl (6.4-8.2) Albumin 4.4 gm/dl (3.4-5.0) Lipase 401 U/L (73-393) Beta-Hydroxybutyric Acid 1.12 mg/dL (0.2-2.81) Thyroid Stimulating Hormone (TSH) 6.380 uIu/ml (0.300-4.500) Urine Color YELLOW Urine Appearance CLEAR (CLEAR) Urine pH 5.0 (4.5-7.5) Urine Specific Shubert 1.018 (1.000-1.030) Urine Protein NEG (NEG) Urine Glucose (UA) 3+ (NEG) Urine Ketones NEG (NEG) Urine Occult Blood NEG (NEG) Urine Nitrite NEG (NEG) Urine Bilirubin NEG (NEG) Urine Urobilinogen NEG (NEG) Urine Leukocyte Esterase NEG (NEG) Laboratory results reviewed by me Medications Administered Medications (Trade) Dose Ordered Sig/Dimitrios Route Start Time Stop Time Status Last Admin Dose Admin Sodium Chloride (Nss 1000ml) 1,000 ml @ 125 mls/hr Q8H STAT IV 06/13/16 16:23 06/13/16 20:56 DC 06/13/16 17:13 125 MLS/HR ECG Indication: chest pain Rate (beats per minute): 77 Rhythm: normal sinus Findings: LBBB, left axis deviation ED Course 162: The patient was evaluated in room C4. A complete history and physical exam was performed. 162: Ordered NSS 1,000 ml @ 125 mls/hr IV. 180: I reassessed the patient. 181: Discussed the patient's case with Dr. Edgar. The patient will be evaluated for further treatment and disposition. 1826: I reassessed the patient. He will give a urine sample. Medical Decision Triage Nursing notes reviewed. The patient's presentation and history were concerning for chest pain, flank pain, and dizziness. Etiologies such as metabolic, infection, hypo/hyperglycemia, electrolyte abnormalities, cardiac sources, intracerebral event, toxicologic, neurologic, as well as others were entertained. The patient was evaluated. He was recently in the hospital for acute kidney injury and an elevated troponin. He was medically treated. He states he's been doing relatively well at home. He had minimal exertion today and got chest pain. He did take aspirin. ECG was nonischemic. He had a workup performed. His cranium is mildly elevated at 2.0 but not significantly different than prior. Chemistry is relatively unremarkable except for glucose of 304. He had a mild anemia on CBC but no leukocytosis. Mild elevation of his TSH. Cardiac markers were negative. Chest x-ray as above. The patient was medically managed on his last admission. He is getting exertional chest pain. Consultation was made with internal medicine. The patient was evaluated in the Emergency Room for further treatment. The chart was completed utilizing [employer] voice recognition software. Grammatical errors, random word insertions, pronoun errors, and incomplete sentences are an occasional consequence of this system due to software limitations, ambient noise, and hardware issues. Any formal questions or concerns about the content, text, or information contained within the body of this dictation should be directly addressed to the physician for clarification. Consults Time Called: 1804 Consulting Physician: Dr. Edgar, [facility] Returned Call: 1814 Discussed the patient's case with Dr. Edgar. The patient will be evaluated for further treatment and disposition. Impression Primary Impression: Substernal chest pain Additional Impression: Renal insufficiency Scribe Attestation The scribe's documentation has been prepared under my direction and personally reviewed by me in its entirety. I confirm that the note above accurately reflects all work, treatment, procedures, and medical decision making performed by me. Departure Information Dispostion Being Evaluated By Hospitalist Referrals Kwaku Moseley M.D. (PCP) Patient Instructions My [facility] Problem Qualifiers
--- NOTE | 2016-06-13 21:31 | HISTORY & PHYSICAL EXAMINATION ---
DATE OF ADMISSION: 06/13/2016 REASON FOR OBSERVATION: Recurrent chest pain. HISTORY OF PRESENT ILLNESS: Mr. Bonilla is a 80-year-old male who has known coronary disease reportedly having [facility] [place]. The patient was most recently admitted and discharged from our facility on June 09 or with chest pain and acute renal failure. The patient reportedly was at home when he was ambulating, feeling chest pain during that time associated with dizziness. The patient took 4 aspirin, tried to lay down, felt worse. He says this did nothing to help. The patient is concerned as he was told at the [facility] that he may have an issue with his heart not getting enough blood and he is scheduled to see them on the for a possible stress test and intervention. The patient did call EMS and arrived. After evaluation in the ER, he had no acute events. He was slightly hypertensive with no acute EKG changes, but he has a baseline left bundle-branch block. He is recommended for admission. PAST MEDICAL HISTORY: For coronary disease with stents, there is a description of stent in the obtuse marginal RCA. He had a NSTEMI in 2012, COPD, obstructive sleep apnea, wearing 16 cm of water per CPAP; morbid Obesity with a BMI of 37, GERD, hypothyroidism, thyroid cancer with surgery, umbilical hernia, BPH. His last echocardiogram from his last visit he had an EF of 40%-45%, reportedly, in the past his EF was preserved. He also has type 2 diastolic dysfunction. MEDICATIONS: On presentation are Tylenol 500 b.i.d., aspirin 81 a day except for today which he took 325, atorvastatin 20 a day, Coreg 25 b.i.d., B12 daily, Flexeril 10 q. 8 p.r.n., Tricor 48 a day, iron 325 a day, Lasix 40 a day, regular insulin, Synthroid 175 mcg a day, mag oxide 420 a day, Glucophage 1000 a day, nitro p.r.n., Percocet as needed for pain, Paxil 60 a day, Actos 15 a day, potassium 20 a day, Zantac 150 a day, Flomax 0.4 a day, Nexium 40 a day. SOCIAL HISTORY: The patient has never smoked, but was around significant secondhand smoke in his lifetime. He used to drink heavily, stopped in 1968. FAMILY HISTORY: Positive for diabetes, thyroid cancer and Parkinson's disease. REVIEW OF SYSTEMS: Ten systems are reviewed. The patient has marked dyspnea with exertion and difficulty getting around. He has pain in his hips and knees that prevent him from doing treadmill stress test. Otherwise, 10 systems were reviewed and are negative. PHYSICAL EXAMINATION: GENERAL: He is a pleasant gentleman. VITAL SIGNS: Temperature 36.8, pulse 81, respirations 22, BP 184/87, O2 sat 95 on room air. HEENT: PERRL, EOMI. Oropharynx is with dry mucous membranes. NECK: Bull necked. Cannot assess JVD. Trachea is midline. He has no thyromegaly. HEART: Regular with a systolic murmur at the right upper sternal border, distant. LUNGS: Clear without wheezes or crackles. Poor air movement. ABDOMEN: Obese, normoactive bowel sounds, soft. Umbilical hernia present, easily reducible. EXTREMITIES: With trace edema bilaterally to the pretibial area. 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 His spine is nontender. There is no CV angle tenderness. NEUROLOGIC: He is awake, alert and appropriate. Cranial nerves II through XII are intact. Equal symmetrical strength and sensation. LABORATORY DATA: Has a white count of 8, H\T\H 12 and 37, platelet count 325. BUN and creatinine are 23 and 2.0. This better than the range we have in our computer, he was 1.4-1.5 in the summer of 2016, glucose 300. Lipase 401, and the TSH is elevated at 6.3. EKG shows left bundle-branch block. Chest x-ray reviewed by myself is unremarkable. His troponin is 0.031. ASSESSMENT: This 80-year-old male here with chest pain and dizziness with associated known coronary artery disease with previous cardiac intervention with stenting. PLAN: The patient will be observed in our facility. Serial enzymes will be taken, cardiac consultation will be undertaken and old records obtained from [facility]. Decision will be to risk stratify him with possibly a Lexiscan given his left bundle-branch block versus to proceed with the intervention given his pretest probability. Although his kidney function does limit this, we will hydrate him gently overnight with 500 of saline and hold his Lasix therapy repeating a creatinine in the morning. We will maintain his aspirin, Coreg, atorvastatin and Tricor. His diabetes is out of control, his A1c last checked was 10, we will stop his oral medications and put him on insulin sliding scale giving him 1 dose of Lantus 10 at night with diabetic diet. Regarding his hypothyroidism, it is likely under replaced, we will increase his Synthroid to 200 mcg from 175. Regarding his chronic pain, we will put him on oxycodone. Zantac for GERD. We will keep Flomax for his BPH. DVT prevention is based upon heparin in case we need to proceed with intervention.
[2016-06-13] MEDS: RANITIDINE HCL 150 MG TAB PO SCH (21:52)
[2016-06-13] MEDS: FERROUS SULFATE 325 MG TAB PO SCH (21:52)
[2016-06-13] MEDS: CARVEDILOL 25 MG TAB PO SCH (21:53)
[2016-06-13] MEDS: HEPARIN SOD 5000 UNIT/0.5 ML CARP SQ SCH (21:56)
[2016-06-13] MEDS: INSULIN ASPART 100 UNITS/ML 3 ML PEN SC SCH (21:57)
[2016-06-13 22:08] VITALS: PULSE 99; O2SAT 95
[2016-06-13 23:18] VITALS: BP 114/67; PULSE 77; TEMP 36.7; O2SAT 94
[2016-06-14 04:19] VITALS: BP 144/86; PULSE 82; TEMP 36.9; O2SAT 96
[2016-06-14] MEDS ORDERED: LEVOTHYROXINE 200 MCG TAB PO SCH (06:30)
[2016-06-14] MEDS ORDERED: LEVOTHYROXINE 175 MCG TAB PO SCH ×2 (06:30)
[2016-06-14 07:00] LABS: HEMATOCRIT 33.7 % (42-52); MEAN CELL VOLUME 86.2 fL (80-100); MEAN CORPUSCULAR HEMOGLOBIN 28.9 pg (25-34); MEAN CORPUSCULAR HGB CONC 33.5 g/dl (32-36); MEAN PLATELET VOLUME 9.1 fL (7.4-10.4); PLATELET COUNT 299 K/uL (130-400); RED BLOOD COUNT 3.91 M/uL (4.7-6.1); WHITE BLOOD COUNT 8.36 K/uL (4.8-10.8)
[2016-06-14 07:39] LABS: BUN/CREATININE RATIO 10.8 (10-20); CREATININE 1.6 mg/dl (0.60-1.40); POTASSIUM 4.4 mmol/L (3.5-5.1)
[2016-06-14 08:15] VITALS: BP 166/78; PULSE 77; TEMP 36.5; O2SAT 92
[2016-06-14] MEDS ORDERED: PANTOprazole SOD 40 MG TAB PO SCH (09:00)
[2016-06-14] MEDS ORDERED: FENOFIBRATE 48 MG TAB PO SCH (09:00)
[2016-06-14] MEDS ORDERED: ASPIRIN 325 MG ECTAB PO SCH (09:00)
[2016-06-14] MEDS ORDERED: MAGNESIUM OXIDE 400 MG TAB PO SCH ×2 (09:00)
[2016-06-14] MEDS ORDERED: ATORVASTATIN 20 MG TAB PO SCH (09:00)
[2016-06-14] MEDS ORDERED: PAROXETINE 20 MG TAB PO SCH ×2 (09:00)
[2016-06-14] MEDS: INSULIN ASPART 100 UNITS/ML 3 ML PEN SC SCH ×3 (09:35→17:12)
[2016-06-14] MEDS ORDERED: REGADENOSON 0.4 MG/5 ML SYR ONE (09:47)
--- NOTE | 2016-06-14 10:01 | CARDIOLOGY CONSULTATION ---
DATE OF CONSULTATION: 06/14/2016 CONSULTATION REQUESTED BY: Dr. Edgar. REASON FOR CONSULTATION: Chest pain. HISTORY OF PRESENT ILLNESS: Mr. Bonilla is a 80-year-old man with a history of known coronary artery disease, status post prior stenting, diabetes, chronic kidney disease, COPD/obstructive sleep apnea, who was admitted yesterday in the setting of dizziness and questionable chest pain. The patient has a long cardiac history beginning back in 2002 when he underwent initial stenting. Per prior cardiac consultation note, has had prior stenting to his obtuse marginal and RCA, most recently in [facility] in 2012. He was most recently admitted earlier this month with atypical symptoms, at that time underwent an echocardiogram which showed unchanged LV function with an EF of around 40-45%, and distal anterior septal, anterior, and apical akinesis. The patient returned to the ED yesterday, the day of admission. The patient states he walked out to the mailbox, he became dizzy, came back and took aspirin, and then felt that he was having a panic attack due to concern for his symptoms. He denies any real leonora chest pain. He has had intermittent chest discomfort from time to time over the last week, which he describes as pain running down the center of his chest into his epigastric region. Denies any associated symptoms with that chest pain. He does report that he is very limited getting around, can walk around his home before he gets short of breath. No significant chest pain with exertion. Of note, the patient was recently evaluated at the [facility]. Per patient report underwent what sounds to be spirometry which prompted the patient to be set up for an evaluation with cardiology in [place] and for consideration of a stress test. PAST MEDICAL HISTORY: 1. Coronary artery disease, status post PCI. Prior stents initially in 2002 in [place], later in 2012, had stenting to a 99% mid RCA lesion and a 95% OM1 lesion with a residual 30% proximal LAD, 20% mid LAD, and 30% D1 lesion. 2. Non-ST elevation in 2012. 3. Chronic left bundle branch. 4. Cardiomyopathy, EF 40-45%. 5. COPD. 6. Obstructive sleep apnea, on BiPAP. 7. Morbid obesity. 8. GERD. 9. Thyroidectomy secondary to thyroid cancer. 10. Kidney stones. 11. Umbilical hernia. 12. BPH. HOME MEDICATIONS: Include Tylenol, aspirin 325, atorvastatin, carvedilol 25 p.o. b.i.d., B12, Flexeril, Nexium, fenofibrate, ferrous sulfate, Lasix 40, insulin, levothyroxine, magnesium, metformin, nitroglycerin, Percocet, paroxetine, pioglitazone, ranitidine and Flomax. ALLERGIES: LISINOPRIL. FAMILY HISTORY: Noncontributory. SOCIAL HISTORY: He lives by himself in [place]. Receives most of his care from the [place]. Has had multiple jobs but now retired. Denies any tobacco or alcohol use. PHYSICAL EXAMINATION: VITAL SIGNS: Temperature 36.5, pulse 77, blood pressure 166/78, he is satting 92% on room air. GENERAL: The patient appears comfortable. He does appear mildly winded with minimal movement. HEENT: Sclerae are anicteric. Oropharynx is clear. His mucous membranes are moist. NECK: Supple. Unable to assess JVD. LUNGS: Clear. He has slightly prolonged expiratory phase. HEART: He has regular rate and rhythm. He has 2/6 systolic ejection murmur heard best at the left upper sternal border. ABDOMEN: Obese but soft, nontender. EXTREMITIES: Warm. He has no significant lower extremity edema. He has intact distal pulses including 2+ radial pulses bilaterally. SKIN: Shows no rashes or lesions. NEUROLOGIC: Nonfocal. PSYCHIATRIC: He is alert and oriented x3. His mood and affect are appropriate. DATA: Labs: White blood cell count 8.4, hemoglobin 11.3, platelets of 299. INR of 0.9. Sodium of 140, potassium 4.4, BUN of 17, creatinine of 1.6, down from 2.0 on admission. Troponin 0.03 and 0.04 this morning. EKG shows chronic left bundle-branch block and a ventricular rate of 77. Imaging: Chest x-ray showed cardiomegaly with bibasilar atelectasis. No other acute cardiopulmonary process. Echo 5 days ago showed mildly dilated LV with mild concentric LVH. There was moderate LV dysfunction, EF 40-45%. The septum, anterior septum, distal anterior wall, apex, and inferior foreman are akinetic. There was normal RV size and function. There was mild aortic stenosis, mild to moderate aortic regurgitation, and grade 2 diastolic dysfunction. Echo unchanged from prior. IMPRESSION AND PLAN: 1. Atypical chest pain/dizziness. 2. History of coronary artery disease, status post multiple prior percutaneous coronary interventions, and prior [id number] elevation myocardial infarction. 3. Diabetes. 4. Chronic kidney disease. 5. Chronic obstructive pulmonary disease. 6. Obstructive sleep apnea. Patient here with atypical symptoms of intermittent rest burning chest discomfort and dizziness. His initial cardiac enzymes are negative. His EKG shows chronic left bundle-branch block. He is hemodynamically stable, and with current presentation, I feel that risk of acute cardiac event is relatively low. However, in the setting of the patient's known coronary artery disease, I feel that the risk of ACS is still elevated and that further risk stratification is warranted. With the patient's left bundle-branch block will proceed with regadenoson SPECT which we will plan to do today. Please keep the patient n.p.o. Would continue on current antihypertensives including carvedilol. Continue aspirin. Continue statin. Further recommendations pending results of stress test. Thank you for allowing us to participate in the care of this patient. Please contact with any questions. SHIRIN
[2016-06-14 12:03] VITALS: Ht 175.3 cm; Wt 112.8 kg
--- NOTE | 2016-06-14 13:00 | Hospitalist Progress Note ---
Hospitalist Progress Note Date of Service Jun 14, 2016. Subjective Pt evaluation today including: conversation w/ patient, physical exam, chart review, lab review, review of studies, review of inpatient medication list Patient denies any further chest pain, pressure or dizziness overnight. Her difficulty breathing. No heart palpitations. Denies any lower extremity pain or swelling. Additional Comments: 6 system review negative. Please see pertinent positives in the history of present illness section. Objective Vital Signs Date Time Temp Pulse Resp B/P Pulse Ox O2 Delivery O2 Flow Rate FiO2 06/14/16 12:00 Room Air CPAP 06/14/16 08:15 36.5 77 20 166/78 92 06/14/16 08:00 Room Air CPAP 06/14/16 04:19 36.9 82 18 144/86 96 06/14/16 04:05 BiPAP 06/14/16 00:05 BiPAP 06/13/16 23:18 36.7 77 18 114/67 94 BiPAP 06/13/16 22:08 99 95 06/13/16 20:35 36.5 87 20 161/79 94 Room Air 06/13/16 20:30 36.7 18 114/67 94 Room Air 06/13/16 20:20 81 22 157/79 95 06/13/16 18:35 81 22 184/87 95 Room Air 06/13/16 16:38 97 Room Air 06/13/16 16:20 76 06/13/16 16:14 36.8 85 24 110/68 95 Room Air Physical Exam General Appearance: no apparent distress Eyes: EOMI Neck: no JVD Respiratory/Chest: lungs clear Cardiovascular: regular rate, rhythm, no murmur Abdomen: normal bowel sounds, non tender, soft Extremities: + pertinent finding (trace pitting edema noted in the left lower extremity without any appreciated erythema, tenderness or warmth. No erythema or edema noted in the right lower extremity) Neurologic/Psychiatric: no motor/sensory deficits, oriented x 3 Skin: warm/dry Laboratory Results 06/14/16 06:28 06/14/16 06:28 Test 06/13/16 17:00 06/13/16 18:40 06/14/16 06:28 06/14/16 07:56 Immature Granulocyte % (Auto) 0.8 % White Blood Count 8.41 K/uL (4.8-10.8) Red Blood Count 4.34 M/uL (4.7-6.1) 3.91 M/uL (4.7-6.1) Hemoglobin 12.5 g/dL (14.0-18.0) Hematocrit 37.2 % (42-52) Mean Corpuscular Volume 85.7 fL (80-100) 86.2 fL (80-100) Mean Corpuscular Hemoglobin 28.8 pg (25-34) 28.9 pg (25-34) Mean Corpuscular Hemoglobin Concent 33.6 g/dl (32-36) 33.5 g/dl (32-36) Platelet Count 323 K/uL (130-400) Mean Platelet Volume 8.7 fL (7.4-10.4) 9.1 fL (7.4-10.4) Neutrophils (%) (Auto) 70.9 % Lymphocytes (%) (Auto) 19.4 % Monocytes (%) (Auto) 5.8 % Eosinophils (%) (Auto) 2.9 % Basophils (%) (Auto) 0.2 % Neutrophils # (Auto) 5.96 K/uL (1.4-6.5) Lymphocytes # (Auto) 1.63 K/uL (1.2-3.4) Monocytes # (Auto) 0.49 K/uL (0.11-0.59) Eosinophils # (Auto) 0.24 K/uL (0-0.5) Basophils # (Auto) 0.02 K/uL (0-0.2) Immature Granulocyte # (Auto) 0.07 K/uL (0.00-0.02) Prothrombin Time 10.0 SECONDS (9.0-12.0) Prothromb Time International Ratio 0.9 (0.9-1.1) Activated Partial Thromboplast Time 23.6 SECONDS (21.0-31.0) Partial Thromboplastin Ratio 0.9 Magnesium Level 2.1 mg/dl (1.8-2.4) Total Bilirubin 0.5 mg/dl (0.2-1) Direct Bilirubin 0.1 mg/dl (0-0.2) Aspartate Amino Transf (AST/SGOT) 25 U/L (15-37) Alanine Aminotransferase (ALT/SGPT) 38 U/L (12-78) Alkaline Phosphatase 112 U/L (45-117) Total Creatine Kinase 114 U/L (39-308) Creatine Kinase MB 1.9 ng/ml (0.5-3.6) Creatine Kinase MB Ratio 1.7 (0-3.0) Total Protein 8.0 gm/dl (6.4-8.2) Albumin 4.4 gm/dl (3.4-5.0) Lipase 401 U/L (73-393) Beta-Hydroxybutyric Acid 1.12 mg/dL (0.2-2.81) Thyroid Stimulating Hormone (TSH) 6.380 uIu/ml (0.300-4.500) Urine Color YELLOW Urine Appearance CLEAR (CLEAR) Urine pH 5.0 (4.5-7.5) Urine Specific [place] 1.018 (1.000-1.030) Urine Protein NEG (NEG) Urine Glucose (UA) 3+ (NEG) Urine Ketones NEG (NEG) Urine Occult Blood NEG (NEG) Urine Nitrite NEG (NEG) Urine Bilirubin NEG (NEG) Urine Urobilinogen NEG (NEG) Urine Leukocyte Esterase NEG (NEG) RDW Standard Deviation 44.5 fL (36.4-46.3) RDW Coefficient of Variation 14.2 % (11.5-14.5) Anion Gap 8.0 mmol/L (3-11) Est Creatinine Clear Calc Drug Dose 47.1 ml/min Estimated GFR () 47.1 Estimated GFR (Non- 40.7 BUN/Creatinine Ratio 10.8 (10-20) Calcium Level 9.0 mg/dl (8.5-10.1) Bedside Glucose 194 mg/dl (70-99) Test 06/14/16 08:37 Troponin I 0.044 ng/ml (0-0.045) Free Thyroxine 1.33 ng/dl (0.80-1.60) Last 24 Hours Test 06/13/16 17:00 06/13/16 18:40 06/13/16 20:51 06/14/16 01:14 White Blood Count 8.41 K/uL Red Blood Count 4.34 M/uL Hemoglobin 12.5 g/dL Hematocrit 37.2 % Mean Corpuscular Volume 85.7 fL Mean Corpuscular Hemoglobin 28.8 pg Mean Corpuscular Hemoglobin Concent 33.6 g/dl Platelet Count 323 K/uL Mean Platelet Volume 8.7 fL Neutrophils (%) (Auto) 70.9 % Lymphocytes (%) (Auto) 19.4 % Monocytes (%) (Auto) 5.8 % Eosinophils (%) (Auto) 2.9 % Basophils (%) (Auto) 0.2 % Neutrophils # (Auto) 5.96 K/uL Lymphocytes # (Auto) 1.63 K/uL Monocytes # (Auto) 0.49 K/uL Eosinophils # (Auto) 0.24 K/uL Basophils # (Auto) 0.02 K/uL RDW Standard Deviation 43.9 fL RDW Coefficient of Variation 14.1 % Immature Granulocyte % (Auto) 0.8 % Immature Granulocyte # (Auto) 0.07 K/uL Prothrombin Time 10.0 SECONDS Prothromb Time International Ratio 0.9 Activated Partial Thromboplast Time 23.6 SECONDS Partial Thromboplastin Ratio 0.9 Sodium Level 136 mmol/L Potassium Level 5.1 mmol/L Chloride Level 102 mmol/L Carbon Dioxide Level 26 mmol/L Anion Gap 8.0 mmol/L Blood Urea Nitrogen 23 mg/dl Creatinine 2.00 mg/dl Est Creatinine Clear Calc Drug Dose 38.2 ml/min Estimated GFR () 36.0 Estimated GFR (Non- 31.0 BUN/Creatinine Ratio 11.5 Random Glucose 304 mg/dl Calcium Level 9.3 mg/dl Magnesium Level 2.1 mg/dl Total Bilirubin 0.5 mg/dl Direct Bilirubin 0.1 mg/dl Aspartate Amino Transf (AST/SGOT) 25 U/L Alanine Aminotransferase (ALT/SGPT) 38 U/L Alkaline Phosphatase 112 U/L Total Creatine Kinase 114 U/L Creatine Kinase MB 1.9 ng/ml Creatine Kinase MB Ratio 1.7 Troponin I 0.031 ng/ml 0.040 ng/ml Total Protein 8.0 gm/dl Albumin 4.4 gm/dl Lipase 401 U/L Beta-Hydroxybutyric Acid 1.12 mg/dL Thyroid Stimulating Hormone (TSH) 6.380 uIu/ml Urine Color YELLOW Urine Appearance CLEAR Urine pH 5.0 Urine Specific [place] 1.018 Urine Protein NEG Urine Glucose (UA) 3+ Urine Ketones NEG Urine Occult Blood NEG Urine Nitrite NEG Urine Bilirubin NEG Urine Urobilinogen NEG Urine Leukocyte Esterase NEG Bedside Glucose 255 mg/dl Test 06/14/16 06:28 06/14/16 07:56 4/7/17 08:37 White Blood Count 8.36 K/uL Red Blood Count 3.91 M/uL Hemoglobin 11.3 g/dL Hematocrit 33.7 % Mean Corpuscular Volume 86.2 fL Mean Corpuscular Hemoglobin 28.9 pg Mean Corpuscular Hemoglobin Concent 33.5 g/dl RDW Standard Deviation 44.5 fL RDW Coefficient of Variation 14.2 % Platelet Count 299 K/uL Mean Platelet Volume 9.1 fL Sodium Level 140 mmol/L Potassium Level 4.4 mmol/L Chloride Level 107 mmol/L Carbon Dioxide Level 25 mmol/L Anion Gap 8.0 mmol/L Blood Urea Nitrogen 17 mg/dl Creatinine 1.60 mg/dl Est Creatinine Clear Calc Drug Dose 47.1 ml/min Estimated GFR () 47.1 Estimated GFR (Non- 40.7 BUN/Creatinine Ratio 10.8 Random Glucose 205 mg/dl Calcium Level 9.0 mg/dl Bedside Glucose 194 mg/dl Troponin I 0.044 ng/ml Free Thyroxine 1.33 ng/dl Assessment and Plan 80-year-old male presented to the emergency department complaining of chest pressure and dizziness with a significant history of coronary artery disease status post 4 stents Chest pain/dizziness-patient is symptomatically overnight. Troponin remains negative -Appreciate cardiology's recommendations -Proceed with a nuclear stress test today -Continue telemetry monitoring -Continue current medical management with aspirin, Lipitor, Coreg Diabetes mellitus-BSG's running high. Last Hgb A1C 10.5 -Outpatient regimen of metformin 1000 mg twice daily and Actos 15 mg daily is on hold. -Given Lantus 10 u one time dose last night -Continue Lantus 10 u BID first dose now -Continue novolog sliding scale -Further adjustments pending response CKD III-Cr improved today @ 1.6. Probably close to baseline -hold lasix one more day as pt is NPO LUCILA -continue CPAP at night Hypothyroid-TSH high at 6 -Synthroid increased to 200 mcg daily (recently) -Check free T4 LLE swelling -check US-r/o DVT DVT prophylaxis -Heparin 5000 u subQ BID -TEDS, SCDs CODE STATUS -LEVEL I FULL CODE
[2016-06-14] MEDS ORDERED: INSULIN GLARGINE SOLOSTAR 100 UNITS/ML 3 ML PEN SC SCH (14:00)
[2016-06-14] MEDS: RANITIDINE HCL 150 MG TAB PO SCH (14:09)
[2016-06-14] MEDS: CARVEDILOL 25 MG TAB PO SCH (14:10)
[2016-06-14] MEDS: FERROUS SULFATE 325 MG TAB PO SCH (14:11)
[2016-06-14] MEDS: HEPARIN SOD 5000 UNIT/0.5 ML CARP SQ SCH (14:12)
[2016-06-14 14:19] VITALS: BP 158/76; PULSE 94; TEMP 37.1; O2SAT 92
--- NOTE | 2016-06-14 14:38 | DIAGNOSTIC IMAGING REPORT ---
ULTRASOUND LEFT VENOUS DOPP LOWER EXT UNILAT CLINICAL HISTORY: Left lower extremity swelling COMPARISON STUDY: No previous studies for comparison. FINDINGS: Real-time and color flow Doppler imaging were performed. Flow was seen within the femoral, popliteal and calf veins with no intraluminal thrombus demonstrated. The saphenous vein is patent. IMPRESSION: No evidence of left lower extremity DVT. Electronically signed by: Shawn Aguilar M.D. 06/14/2016 2:36 PM Dictated Date/Time: 06/14/2016 2:36 PM
[2016-06-14] MEDS ORDERED: SYN200 PO (15:18)
--- NOTE | 2016-06-14 15:31 | Discharge Instructions ---
Discharge Instructions Date of Service Jun 14, 2016. Admission Reason for Admission: Chest Pain Discharge Discharge Diagnosis / Problem: Atypical chest pain, h/o CAD, hypothyroidism, diabetes Discharge Goals Goal(s): Improve function, Improve disease control Activity Recommendations Activity Limitations: resume your previous activity Lifting Limitations: none Exercise/Sports Limitations: as tolerated Shower/Bathe: no limitations . Instructions / Follow-Up Instructions / Follow-Up Medications: - SYNTHROID: please note that your dose was increased from 175mcg to 200mcg please have the [facility] check a repeat TSH in 6 weeks Leg swelling: left leg doppler was negative for a DVT (clot) Chest pain: nuclear stress test showed no signs of ischemia and troponin negative, cardiology feels that chest pain is not due to your heart Diabetes: your HbA1c was 10.5 on last admission, you likely need adjustment in insulin regimen, perhaps Lantus could be started, would recommend a dose of 10 units twice a day to start but will leave that up to your PCP at the [facility] FOLLOW UP - please call for appointment with the [facility] for hospital follow up, discuss recent stress test and increase in Synthroid to 200mcg and need to tighten diabetes control Current Hospital Diet Patient's current hospital diet: Diabetes Type 2 Diet Discharge Diet Recommended Diet: AHA Diet (Heart Healthy), Diabetes Type 2 Diet Procedures Procedures Performed: Nuclear stress test Pending Studies Studies pending at discharge: no Laboratory Results Hemoglobin A1c Test 06/09/16 02:03 Range/Units Estimated Average Glucose 255 mg/dl Hemoglobin A1c 10.5 H 4.5-5.6 % Medical Emergencies . Who to Call and When: Medical Emergencies: If at any time you feel your situation is an emergency, please call 911 immediately. . Non-Emergent Contact Non-Emergency issues call your: Primary Care Provider Call Non-Emergent contact if: you have any medication questions . . "Provider Documentation" section prepared by Marvin Butcher. VTE Core Measure Inpt VTE Proph given/why not?: Unfractionated heparin SQ [place] Drug Monitoring Program Search Results: no issues identified
[2016-06-14 16:00] VITALS: O2SAT 92
[2016-06-14 16:54] VITALS: BP 158/76; PULSE 94; TEMP 37.1; O2SAT 92
--- NOTE | 2016-06-14 17:24 | MYOCARDIAL PERFUSION SCAN ---
ATTENDING PHYSICIAN: Hadley Edgar MD TYPE OF STUDY: ONE-DAY NUCLEAR MEDICINE TECHNETIUM-99M CARDIOLITE MYOCARDIAL PERFUSION SCAN. STUDY INDICATION: Atypical chest pain, history of coronary artery disease. EKG: Baseline EKG shows sinus rhythm with a left bundle-branch block at a ventricular rate of 83. REGADENOSON EKG: There were occasional PVCs. The patient had some associated dizziness with regadenoson. Heart rate trena from 83 up to 116, 81% of maximum predicted heart rate. TECHNIQUE: For the stress portion of the study 36.8 mCi of technetium-99m Cardiolite IV was injected at 1306 p.m. on 06/14/2016. Thirty minutes following the injection, imaging of the heart was performed in multiple projections. For the rest portion of the study, 11 mCi of technetium-99m Cardiolite was injected IV at 11:35, one hour following the injection, imaging of the heart was performed in the same projections. FINDINGS: Raw images were reviewed in detail. There was mild diaphragmatic attenuation. There was mild gut/liver uptake potentially minimally impacting the inferior imaging border of the heart. There was no significant extracardiac pathologic uptake. The short axis, long axis, vertical long axis images were reviewed in detail. There was no visual t.i.d. There was a large moderate in severity primarily fixed perfusion defect involving the mid anteroinfero- septum, apical septum and true apex as well as the mid inferior and apical inferior wall. There was no significant reversibility. LV was mildly dilated with an end-diastolic volume of 159 mL. LV systolic function was moderate to severely reduced with an EF of 33%. There was septal dyskinesis, inferior severe hypokinesis and apical akinesis. IMPRESSION: 1. No significant regadenoson induced myocardial perfusion defects suggestive of ischemia. 2. Fixed large, moderate in severity, septal, apical and inferior perfusion defect. 3. Nondiagnostic EKG due to left bundle-branch block. 4. Moderate to severe LV dysfunction with septal dyskinesis, inferior severe hypokinesis and apical akinesis. 5. Overall, findings suggestive of inferior infarct and probable left bundle branch artifact versus questionable distal LAD distribution infarct. MTDD
--- NOTE | 2016-06-15 07:26 | Discharge Summary ---
Discharge Summary Date of Service Jun 15, 2016. Discharge Summary Admission Date: Jun 13, 2016 at 18:57 Discharge Date: Jun 14, 2016 Discharge Disposition: Home Principal Diagnosis: Atypical chest pain, non-cardiac Problems/Secondary Diagnoses: DM, insulin dependent, poorly control Left leg swelling h/o CAD s/p PCI with stents x 4 Hypothyroidism Chronic systolic heart failure Procedures: Lexiscan stress test - negative for ischemia, EF 33% Left lower extremity doppler - negative for DVT Consultations: Cardiology Medication Reconciliation New Medications: Levothyroxine Sodium (Synthroid) 200 Mcg Tab 200 MCG PO DAILYBB, #30 TAB 3 Refills Continued Medications: Acetaminophen (Tylenol) 500 Mg Tab 500 MG PO BID, TAB Aspirin (Aspirin Ec) 325 Mg Tab 325 MG PO DAILY Aspirin (Aspirin Ec) 81 Mg Tab 81 MG PO DIRECTED PT STATES "TOOK 4 BABY ASPIRIN PRIOR TO CALL 911". Atorvastatin (Lipitor) 40 Mg Tab 20 MG PO DAILY, TAB Carvedilol (Coreg) 25 Mg Tab 25 MG PO Q12, TAB Cyanocobalamin (Cyanocobalamin) 1,000 Mcg/Ml Inj 1 ML INJ MONTHLY Cyclobenzaprine Hcl (Flexeril) 10 Mg Tab 10 MG PO Q8 PRN for BACK SPASMS, TAB Ergocalciferol (Vitamin D 01573 Unit) 50,000 Unit Cap 10039 UNIT PO WK, CAP TAKES ON FRIDAYS. Esomeprazole Magnesium (Nexium) 40 Mg Capcr 40 MG PO DAILY, CAP Fenofibrate (Tricor) 48 Mg Tab 48 MG PO DAILY, TAB Ferrous Sulfate (Ferrous Sulfate) 325 Mg Tab 325 MG PO BID Furosemide (Lasix) 40 Mg Tab 40 MG PO DAILY, TAB Insulin Human Regular (Humulin R) 1 Ea Inj 10 UNITS SQ DAILY TAKE AT SAME TIME EACH DAY - 6:00 PM Ketotifen Fumarate (Ophth) (Thera Tears Allergy Eye I) 0.025 % Ap 1 DROP OP Q12 PRN for ALLERGIC REACTION Magnesium Oxide (Mag-Ox) 400 Mg Tab 420 MG PO DAILY, TAB Metformin Hcl (Glucophage) 1,000 Mg Tab 1000 MG PO BIDM, TAB Nitroglycerin (Nitrostat) 0.4 Mg Tab 0.4 MG UT PRN, BTL NEEDED FOR CHEST PAIN : ONE TABLET UBDER THE TONGUE EVERY 5 MINUTES UP TO 3 DOSES. Oxycodone/Acetaminophen 5MG/325MG (Oxycodone/Acetaminophen 5MG/325MG) 1 Tab Tab 1 TABLET PO Q4H, TAB Oxycodone/Acetaminophen 5MG/325MG (Percocet 5MG/325MG) Tab 1 TABLET PO Q6H PRN for Pain, TAB PAIN Paroxetine (Paxil) 40 Mg Tab 40 MG PO DAILY, TAB Paroxetine (Paxil) 40 Mg Tab 20 MG PO DAILY, TAB 1/2 TABLET DOSE Potassium Ext Rel (Klor-Con) 20 Meq Tabcr 20 MEQ PO DAILY, TAB Ranitidine (Zantac) 150 Mg Tab 150 MG PO BID, TAB Tamsulosin Hcl (Flomax) 0.4 Mg Cap 0.4 MG PO HS, CAP Discontinued Medications: Levothyroxine Sodium (Levothyroxine Sodium) 175 Mcg Tab 175 MCG PO DAILY, TAB Discharge Exam Patient resting comfortably after having stress test. Denied any further chest pain or dyspnea. He was eating well. Was notified by Dr. Ellison that the stress test was negative for ischemia, his EF was 33% and there was evidence of prior infarcts. Cleared by cardiology for discharge, recommended following up with [facility] cardiology. Review of Systems: Constitutional: No chills, No fatigue, No fever, No problem reported, No sweats, No weakness, No weight loss Eyes: No diplopia, No discharge, No eye pain, No problem reported, No redness, No worsening of vision ENT: No dental problems, No hearing loss, No nasal symptoms, No problem reported, No sore throat, No tinnitus, No trouble swallowing, No unusual epistaxis Respiratory: + dyspnea on exertion, No cough, No dyspnea at rest, No hemoptysis, No problem reported, No shortness of breath, No sputum, No wheezing Cardiovascular: + edema, No PND, No chest pain, No claudication, No orthopnea, No palpitations, No problem reported Abdomen: No GI bleeding, No constipation, No diarrhea, No nausea, No pain, No problem reported, No vomiting Musculoskeletal: No calf pain, No joint pain, No muscle pain, No problem reported, No swelling Genitourinary - Male: No dysuria, No hematuria, No urinary frequency, No urinary urgency Neurologic: No balance problems, No memory loss, No numbness/tingling, No paralysis, No problem reported, No vertigo, No weakness Psychiatric: No anhedonism, No anxiety, No depression symptoms, No insomnia , No problem reported, No substance abuse Endocrine: No excessive thirst, No excessive urination, No fatigue, No problem reported Hematologic / Lymphatic: No abnormal bleeding/bruising, No clotting problems , No night sweats, No problem reported, No swollen lymph nodes Integumentary: No bleeding, No color change, No itch, No new/changing skin lesions, No problem reported, No rash Physical Exam: General Appearance: WD/WN, no apparent distress Eyes: normal inspection, EOMI, sclerae normal ENT: normal ENT inspection, hearing grossly normal, pharynx normal Neck: supple, no adenopathy, no JVD, trachea midline Respiratory/Chest: chest non-tender, no respiratory distress, no accessory muscle use, + decreased breath sounds (bases) Cardiovascular: regular rate, rhythm, no gallop, no JVD, no murmur, normal peripheral pulses Abdomen / GI: normal bowel sounds, non tender, soft, no organomegaly Extremities: normal inspection, no calf tenderness, normal capillary refill , normal range of motion, pelvis stable, + pedal edema (left greater than right , +1 pitting, normal for patient) Neurologic/Psychiatric: specifications checker II-XII nml as tested, no motor/sensory deficits , alert, normal mood/affect, normal reflexes, oriented x 3 Skin: normal color, warm/dry, no rash, + pertinent finding (actinic keratosis diffusely) Hospital Course 80-year-old male presented to the emergency department complaining of chest pressure and dizziness with a significant history of coronary artery disease status post 4 stents Chest pain/dizziness- no further symptoms over night, troponin negative x 3 Lexiscan stress test on 06/14: no ischemia, EF 33%, evidence of prior infarcts continue Aspirin, Lipitor, Coreg follow up with [facility] cardiology Diabetes mellitus- BSG's running high. Last Hgb A1C 10.5 on prior admission discussed his typical regimen, says he takes his Metformin and Actos as prescribed his Insulin R he takes at bedtime no hypoglycemic episodes would recommend a different regimen with Lantus 10 units BID but he wants to discuss with [facility] also, would recommend stopping Actos in the future with his heart historyas CKD III- at baseline at 1.6, continue Lasix 40mg daily Chronic systolic heart failure: continue Coreg, Lasix, he has AIDEN allergy if heart failure is an issue, he should be on ARB or Hydralazine/Imdur combo should follow up with cardiology with [facility] LUCILA -continue CPAP at night Hypothyroid-TSH high at 6 -Synthroid increased to 200 mcg daily should have a repeat TSH in 6 weeks -Check free T4 LLE swelling -check US-r/o DVT: NEGATIVE for DVT DVT prophylaxis -Heparin 5000 u subQ BID -TEDS, SCDs CODE STATUS -LEVEL I FULL CODE Total Time Spent: Greater than 30 minutes This includes examination of the patient, discharge planning, medication reconciliation, and communication with other providers. Discharge Instructions Please refer to the electronic Patient Visit Report (Discharge Instructions) for additional information. Follow-Up Dr. Moseley in one week [facility] cardiology in several weeks Additional Copies To Kwaku Moseley M.D.
[2016-12-24] MEDS ORDERED: ASPEC81 PO (11:11)
[2016-12-24] MEDS ORDERED: INSDGIPEN SC (11:11)
[2016-12-24] MEDS ORDERED: PLV75 PO (11:11)
[2016-12-24] MEDS ORDERED: CZR25 PO (18:16)
== END 2016-06-14 18:05 | disposition home or self-care (01) ==
LOC: ENRESERVTM → ENRESERVDT → EDBD 16:09 → C.EDC 16:10 → C.MED 18:57
PROVIDERS: ADMIT Internal Medicine; ATTEND Internal Medicine
DX: R07.89 Other chest pain (principal); I25.10 Atherosclerotic heart disease of native coronary artery without angina pectoris; E11.9 Type 2 diabetes mellitus without complications; J44.9 Chronic obstructive pulmonary disease, unspecified; G47.33 Obstructive sleep apnea (adult) (pediatric); I25.2 Old myocardial infarction; I44.7 Left bundle-branch block, unspecified; E66.01 Morbid (severe) obesity due to excess calories; K21.9 Gastro-esophageal reflux disease without esophagitis; Z79.4 Long term (current) use of insulin; Z95.5 Presence of coronary angioplasty implant and graft; N18.3 Chronic kidney disease, stage 3 (moderate); I50.22 Chronic systolic (congestive) heart failure; E03.9 Hypothyroidism, unspecified; Z79.899 Other long term (current) drug therapy

== ENCOUNTER 2016-12-22 18:45 | Inpatient (IN) | payer OTHER ==
[~2016-12-22] VITALS: Ht 175.3 cm; Wt 110.6 kg
[~2016-12-22 18:45] MED LIST changes: -ACT15 PO; +ASPI81TA28 PO; -ERGO1CAP35 PO; +ERGO500037 PO; -ESOM1CAP34 PO; -KETO0.0216 OP; +KETO1DRO13 OP; -LEVO175T3 PO; +NXM/40 PO; +SYN200 PO
--- NOTE | 2016-12-22 19:15 | EMERGENCY ROOM VISIT NOTE ---
History Report prepared by Rocio: Anjelica Harvey Under the Supervision of: Dr. Virgil Holm M.D. First contact with patient: 18:53 Chief Complaint: CHEST PAIN Stated Complaint: SOB, CHEST DISCOMFORT History of Present Illness The patient is a 81 year old male who presents to the Emergency Room with complaints of an episode of chest pain starting an hour ago. The patient states that he was working on his car when he tried to get up. He reports that he struggled and when he finally was able to stand, he was dizzy. He reports that he started having chest pain and shortness of breath. He reports that the pain was dull. He reports that he was diaphoretic. The patient denies the pain radiating to his arm, neck, and back. He reports that he took 2 Nitroglycerin and it provided relief. EMS states that they gave Aspirin on the way here. He complains of a headache and feeling antsy all day. The patient denies nausea, vomiting, hematochezia, melena, abdominal pain, fever, using nitroglycerin before, and the use of blood thinners. Source of History: patient, EMS Onset: an hour ago Position: chest Quality: dull Timing: other (episode) Modifying Factors (Relieving): other (Nitroglycerin) Associated Symptoms: + headache, + diaphoresis, + SOB, No fevers, No nausea , No vomiting, No abdominal pain, No melena, No hematochezia Note: The patient complains of dizziness and feeling antsy. The patient denies the pain radiating, using Nitroglycerin before, and the use of blood thinners. Review of Systems See HPI for pertinent positives & negatives. A total of 10 systems reviewed and were otherwise negative. Past Medical & Surgical Medical Problems: (1) Chest pain (2) COPD (chronic obstructive pulmonary disease) (3) Diabetes (4) Umbilical hernia Surgical Problems: (1) History of coronary artery stent placement (2) Hx of cardiac cath Old medical records were reviewed. Nurse's notes were reviewed and I agree with. Family History Patient reports no known family medical history. Social History Smoking Status: Former Smoker Alcohol Use: none Drug Use: none Marital Status: Housing Status: lives with family Occupation Status: retired Current/Historical Medications Scheduled Aspirin (Aspirin Ec), 325 MG PO DAILY Atorvastatin (Lipitor), 20 MG PO DAILY Carvedilol (Coreg), 25 MG PO Q12 Cyanocobalamin (Cyanocobalamin), 1 ML INJ MONTHLY Ergocalciferol (Vitamin D 86062 Unit), 50,000 UNIT PO WK Fenofibrate (Tricor), 48 MG PO DAILY Ferrous Sulfate (Ferrous Sulfate), 325 MG PO BID Furosemide (Lasix), 40 MG PO DAILY Insulin Glargine (Lantus Solostar), 35 UNITS SC BID Insulin Human Regular (Humulin R), 5 UNITS SQ HS Levothyroxine Sodium (Synthroid), 200 MCG PO DAILYBB Magnesium Oxide (Mag-Ox), 420 MG PO DAILY Nitroglycerin (Nitrostat), 0.4 MG UT PRN Paroxetine (Paxil), 40 MG PO BID Ranitidine (Zantac), 150 MG PO BID Tamsulosin Hcl (Flomax), 0.4 MG PO HS Scheduled PRN Cyclobenzaprine Hcl (Flexeril), 10 MG PO Q8 PRN for BACK SPASMS Ketotifen Fumarate (Ophth) (Thera Tears Allergy Eye I), 1 DROP OP Q12 PRN for ALLERGIC REACTION Oxycodone/Acetaminophen 5MG/325MG (Percocet 5MG/325MG), 1 TABLET PO BID PRN for Pain Allergies Coded Allergies: Lisinopril (Verified Allergy, Unknown, ., 12/22/16) Physical Exam Vital Signs Date Time Temp Pulse Resp B/P (MAP) Pulse Ox O2 Delivery O2 Flow Rate FiO2 12/22/16 22:59 37.0 83 22 177/71 95 Nasal Cannula 2.0 12/22/16 22:26 80 20 157/84 96 Nasal Cannula 2.0 12/22/16 21:00 82 20 131/72 96 Nasal Cannula 2.0 12/22/16 20:14 81 20 161/72 94 Nasal Cannula 2.0 12/22/16 19:31 90 12/22/16 18:57 91 Room Air 12/22/16 18:52 91 Room Air 12/22/16 18:52 36.8 87 22 161/90 91 Room Air Physical Exam General: Non-ill appearing older male in no acute distress. HEENT: Normal cephalic atraumatic. Pupils are equal round and reactive to light. Extraocular movements are intact. Oropharynx is pink with moist mucous membranes. No swelling of the mouth lips or tongue. Neck: Supple with a midline trachea. No meningeal signs or stiffness, no JVD or bruits. No Stridor. Chest: Clear to auscultation bilaterally. No wheezes or rhonchi. No increased work of breathing. Pacemaker/defibrillator in left chest. No redness or warmth. Heart: regular rate and rhythm. Abdomen: Soft nontender, nondistended without rebound guarding or rigidity. Has umbilical hernia that is reproducible and nontender. Extremities: No cyanosis clubbing or edema. No calf tenderness or assymetry Spine/Back. Non tender to palpation. No CVA tenderness Skin: Good turgor without rashes. Neurologic exam: Cranial nerves two through 12 are intact. Motor and sensation are intact and symmetrical throughout. Medical Decision & Procedures ER Provider Diagnostic Interpretation: Radiology results as stated below per my review and radiologist interpretation: CHEST ONE VIEW PORTABLE CLINICAL HISTORY: Chest pain. COMPARISON STUDY: Chest radiograph June 13, 2016. FINDINGS: A left subclavian biventricular pacer/AICD is in place. Exam is mildly compromised by motion artifact. There is no pneumothorax or pleural effusion. Pulmonary vascularity is normal. Linear left basilar opacity is suggestive of atelectasis. Moderate cardiomegaly is unchanged. Widening of the right paratracheal stripe is unchanged. IMPRESSION: No acute cardiopulmonary findings. Moderate cardiomegaly without evidence of pulmonary edema. Electronically signed by: Nicola Mohr M.D. 12/22/2016 8:03 PM Dictated Date/Time: 12/22/2016 7:39 PM Laboratory Results 12/22/16 18:15 Red Blood Count 4.49, Mean Corpuscular Volume 82.9, Mean Corpuscular Hemoglobin 27.8, Mean Corpuscular Hemoglobin Concent 33.6, Mean Platelet Volume 9.0, Neutrophils (%) (Auto) 66.6, Lymphocytes (%) (Auto) 22.3, Monocytes (%) (Auto) 7.9, Eosinophils (%) (Auto) 2.4, Basophils (%) (Auto) 0.3, Neutrophils # (Auto) 7.09, Lymphocytes # (Auto) 2.37, Monocytes # (Auto) 0.84, Eosinophils # (Auto) 0.26, Basophils # (Auto) 0.03 12/22/16 18:15 Test 12/22/16 18:15 12/22/16 19:05 12/22/16 19:22 White Blood Count 10.64 K/uL (4.8-10.8) Red Blood Count 4.49 M/uL (4.7-6.1) Hemoglobin 12.5 g/dL (14.0-18.0) Hematocrit 37.2 % (42-52) Mean Corpuscular Volume 82.9 fL (80-100) Mean Corpuscular Hemoglobin 27.8 pg (25-34) Mean Corpuscular Hemoglobin Concent 33.6 g/dl (32-36) Platelet Count 311 K/uL (130-400) Mean Platelet Volume 9.0 fL (7.4-10.4) Neutrophils (%) (Auto) 66.6 % Lymphocytes (%) (Auto) 22.3 % Monocytes (%) (Auto) 7.9 % Eosinophils (%) (Auto) 2.4 % Basophils (%) (Auto) 0.3 % Neutrophils # (Auto) 7.09 K/uL (1.4-6.5) Lymphocytes # (Auto) 2.37 K/uL (1.2-3.4) Monocytes # (Auto) 0.84 K/uL (0.11-0.59) Eosinophils # (Auto) 0.26 K/uL (0-0.5) Basophils # (Auto) 0.03 K/uL (0-0.2) RDW Standard Deviation 44.0 fL (36.4-46.3) RDW Coefficient of Variation 14.5 % (11.5-14.5) Immature Granulocyte % (Auto) 0.5 % Immature Granulocyte # (Auto) 0.05 K/uL (0.00-0.02) Prothrombin Time 10.0 SECONDS (9.0-12.0) Prothromb Time International Ratio 0.9 (0.9-1.1) Activated Partial Thromboplast Time 22.5 SECONDS (21.0-31.0) Partial Thromboplastin Ratio 0.9 Anion Gap 11.0 mmol/L (3-11) Est Creatinine Clear Calc Drug Dose 52.5 ml/min Estimated GFR () 50.6 Estimated GFR (Non- 43.7 BUN/Creatinine Ratio 11.5 (10-20) Calcium Level 8.8 mg/dl (8.5-10.1) Total Bilirubin 0.8 mg/dl (0.2-1) Direct Bilirubin 0.2 mg/dl (0-0.2) Aspartate Amino Transf (AST/SGOT) 13 U/L (15-37) Alanine Aminotransferase (ALT/SGPT) 23 U/L (12-78) Alkaline Phosphatase 131 U/L (45-117) Total Creatine Kinase 73 U/L (39-308) Creatine Kinase MB 1.2 ng/ml (0.5-3.6) Total Protein 7.2 gm/dl (6.4-8.2) Albumin 3.6 gm/dl (3.4-5.0) Lipase 168 U/L (73-393) Creatine Kinase MB Ratio (0-3.0) Bedside Troponin I 0.160 ng/ml (0-0.045) Laboratory studies as stated above per my review. Medications Administered Medications (Trade) Dose Ordered Sig/Dimitrios Route Start Time Stop Time Status Last Admin Dose Admin Heparin Sodium (Porcine) (Heparin Iv Bolus) 10,000 unit STK-MED ONCE .ROUTE 12/22/16 22:07 12/22/16 22:08 DC 12/22/16 22:22 7,000 UNIT Heparin Sodium/ Dextrose (Heparin 25,000 Unit/500ml D5W) 25,000 unit STK-MED ONCE .ROUTE 12/22/16 22:07 12/22/16 22:08 DC 12/22/16 22:22 25,000 UNIT ECG Indication: chest pain Rate (beats per minute): 88 Rhythm: other (ventricular paced rhythm) Findings: no acute ischemic change, no ectopy Comparison ECG Date: June 13, 2016 Change: Paced rhythm has replaced normal sinus rhythm. ED Course 1855: Past medical records reviewed. The patient was evaluated in room C5, and a complete history and physical examination were performed. 2035: I reevaluated the patient and he is resting comfortably. 2053: Discussed the patient's case with Dr. Feliciano. The patient will be evaluated for further management. Medical Decision Differential diagnoses include acute coronary disorder, CHF, PE, electrolyte abnormality, metabolic abnormality. This patient comes in as described above. He had episode of chest pain. He has cardiac disease history and he got better after taking 2 nitroglycerin at home. He does not typically take nitroglycerin. He have a history of a implantable defibrillator and pacer. His initial EKG does not suggest ischemia although it's done while he is not having pain. IV access established blood work was obtained. I have reviewed his old records. Chest x-ray and blood work was obtained. He has nothing to suggest congestive heart failure, pneumonia, or pneumothorax. His troponin is mildly elevated at 0.12. Troponin being elevated that is certainly more concerning for cardiac disease. He has no acute electrolyte or metabolic abnormalities. I do think that he needs to be admitted/observed for further cardiac evaluation workup. I have consulted the [facility] hospitalist and they will see him in the ER for these measures. Medication Reconcilliation Current Medication List: was personally reviewed by me Blood Pressure Screening Patient's blood pressure: Elevated blood pressure Will be further monitored by hospitalist. Consults Time Called: 2049 Consulting Physician: Dr. Feliciano Returned Call: 2053 Discussed the patient's case with Dr. Feliciano. The patient will be evaluated for further management. Impression Primary Impression: Chest pain Additional Impression: Elevated troponin Scribe Attestation The scribe's documentation has been prepared under my direction and personally reviewed by me in its entirety. I confirm that the note above accurately reflects all work, treatment, procedures, and medical decision making performed by me. Departure Information Dispostion Being Evaluated By Hospitalist Referrals Kwaku Moseley M.D. (PCP) Patient Instructions My [facility] Health Problem Qualifiers
[2016-12-22 19:18] LABS: BASO % 0.3 %; BASO ABS # 0.03 K/uL (0-0.2); COMPLETE YES; EOS % 2.4 %; HEMATOCRIT 37.2 % (42-52); IG% 0.5 %; LYMPH % 22.3 %; LYMPH ABS # 2.37 K/uL (1.2-3.4); MEAN CELL VOLUME 82.9 fL (80-100); MEAN CORPUSCULAR HEMOGLOBIN 27.8 pg (25-34); MEAN CORPUSCULAR HGB CONC 33.6 g/dl (32-36); MONO % 7.9 %; NEUT % 66.6 %; PLATELET COUNT 311 K/uL (130-400); RED BLOOD COUNT 4.49 M/uL (4.7-6.1); WHITE BLOOD COUNT 10.64 K/uL (4.8-10.8)
[2016-12-22 19:27] LABS: BUN/CREATININE RATIO 11.5 (10-20); CALCIUM 8.8 mg/dl (8.5-10.1); CREATININE 1.5 mg/dl (0.60-1.40); POTASSIUM 3.6 mmol/L (3.5-5.1)
[2016-12-22 19:29] LABS: INR 0.9 (0.9-1.1); PARTIAL THROMBOPLASTIN RATIO 0.9
[2016-12-22 19:32] LABS: CKMB/CK RATIO 1.6 (0-3.0)
--- NOTE | 2016-12-22 20:04 | DIAGNOSTIC IMAGING REPORT ---
CHEST ONE VIEW PORTABLE CLINICAL HISTORY: Chest pain. COMPARISON STUDY: Chest radiograph June 13, 2016. FINDINGS: A left subclavian biventricular pacer/AICD is in place. Exam is mildly compromised by motion artifact. There is no pneumothorax or pleural effusion. Pulmonary vascularity is normal. Linear left basilar opacity is suggestive of atelectasis. Moderate cardiomegaly is unchanged. Widening of the right paratracheal stripe is unchanged. IMPRESSION: No acute cardiopulmonary findings. Moderate cardiomegaly without evidence of pulmonary edema. Electronically signed by: Nicola Mohr M.D. 12/22/2016 8:03 PM Dictated Date/Time: 12/22/2016 7:39 PM
[2016-12-22] MEDS ORDERED: INSDGIPEN SC (20:07)
[2016-12-22] MEDS ORDERED: MAGNESIUM HYDROXIDE SUSP 30 ML UDC PO PRN (21:15)
[2016-12-22] MEDS ORDERED: ALUMINUM/MAGNESIUM/SIMETH (MAALOX MAX) 30 ML UDC PO PRN (21:15)
[2016-12-22] MEDS ORDERED: OXYCODONE/ACETAMINOPHEN 5-325 TAB PO PRN (21:15)
[2016-12-22] MEDS ORDERED: NITROGLYCERIN 0.4 MG SL PER TAB CHARGE SL PRN (21:15)
[2016-12-22] MEDS ORDERED: MoRPHine SULFATE 2 MG/ML CARP IV PRN (21:15)
[2016-12-22] MEDS ORDERED: POLYETHYLENE (MIRALAX) 17 GM PACK PO PRN (21:15)
[2016-12-22] MEDS ORDERED: ONDANSETRON INJ 2 MG/ML 2 ML VIAL IV PRN (21:15)
[2016-12-22] MEDS ORDERED: CYCLOBENZAPRINE HCL 10 MG TAB PO PRN (21:15)
--- NOTE | 2016-12-22 21:36 | History and Physical ---
History & Physical Date & Time of Service: Dec 22, 2016 at 21:30 Chief Complaint: Sob, Chest Discomfort Primary Care Physician: No Doctor, Assigned History of Present Illness Source: patient 81 y/o M Hx CAD, mixed CHF, DM, LBBB, pacer, HTN, morbid obesity, LUCILA, hypothyroidism. Pt presents with intermittent central CP accompanied by SOB and dizziness. He denies radiation, N/V or diaphoresis. His pain had resolved on arrival to the ER. The pt's BP was elevated at over 190 on arrival to the ER. Initial troponin is elevated. EKG shows ventricular pacing. Past Medical/Surgical History 1) CAD - NSTEMI 2012 Cath 2012 - stenting to a 99% mid RCA lesion and a 95% OM1 lesion with a residual 30% proximal LAD, 20% mid LAD, and 30% D1 lesion. 2) COPD 3) DM II 4) BPH 5) Morbidly obese 6) Thyroid CA 7) Hypothyroidism following thyroidectomy 8) Chronic systolic CHF - EF 40-45% with grade II diastolic dysfunction 9) Recurrent chest pain 10) Pacer 07/17/16 11) LBBB 12) Mild with moderate regurge Family History Patient reports no known family medical history. Social History Smoking Status: Former Smoker Drug Use: none Marital Status: Housing status: lives with family Occupational Status: retired Multi-Drug Resistant Organisms History of MDRO: No Allergies Coded Allergies: Lisinopril (Verified Allergy, Unknown, ., 12/22/16) Home Medications Scheduled Aspirin (Aspirin Ec), 325 MG PO DAILY Atorvastatin (Lipitor), 20 MG PO DAILY Carvedilol (Coreg), 25 MG PO Q12 Cyanocobalamin (Cyanocobalamin), 1 ML INJ MONTHLY Ergocalciferol (Vitamin D 01857 Unit), 50,000 UNIT PO WK Fenofibrate (Tricor), 48 MG PO DAILY Ferrous Sulfate (Ferrous Sulfate), 325 MG PO BID Furosemide (Lasix), 40 MG PO DAILY Insulin Glargine (Lantus Solostar), 35 UNITS SC BID Insulin Human Regular (Humulin R), 5 UNITS SQ HS Levothyroxine Sodium (Synthroid), 200 MCG PO DAILYBB Magnesium Oxide (Mag-Ox), 420 MG PO DAILY Nitroglycerin (Nitrostat), 0.4 MG UT PRN Paroxetine (Paxil), 40 MG PO BID Ranitidine (Zantac), 150 MG PO BID Tamsulosin Hcl (Flomax), 0.4 MG PO HS Scheduled PRN Cyclobenzaprine Hcl (Flexeril), 10 MG PO Q8 PRN for BACK SPASMS Ketotifen Fumarate (Ophth) (Thera Tears Allergy Eye I), 1 DROP OP Q12 PRN for ALLERGIC REACTION Oxycodone/Acetaminophen 5MG/325MG (Percocet 5MG/325MG), 1 TABLET PO BID PRN for Pain Review of Systems Constitutional: No fever, No chills, No sweats Eyes: No worsening of vision ENT: No hearing loss, No unusual epistaxis, No nasal symptoms Respiratory: + shortness of breath, No cough, No sputum, No wheezing Cardiovascular: + chest pain, No orthopnea Abdomen: No pain, No nausea, No vomiting Musculoskeletal: No joint pain Genitourinary - Male: No hematuria, No dysuria Neurologic: + problem reported (Dizziness), No memory loss, No paralysis, No weakness Psychiatric: No depression symptoms Endocrine: No fatigue Hematologic / Lymphatic: No abnormal bleeding/bruising Integumentary: No rash Allergic / Immunologic: No environmental allergies Physical Exam Vital Signs Date Time Temp Pulse Resp B/P (MAP) Pulse Ox O2 Delivery O2 Flow Rate FiO2 12/22/16 20:14 81 20 161/72 94 Nasal Cannula 2.0 12/22/16 19:31 90 12/22/16 18:57 91 Room Air 12/22/16 18:52 91 Room Air 12/22/16 18:52 36.8 87 22 161/90 91 Room Air General Appearance: WD/WN, no apparent distress, + obese Head: normocephalic Eyes: normal inspection ENT: normal ENT inspection, pharynx normal Neck: supple Respiratory/Chest: chest non-tender, lungs clear, normal breath sounds Cardiovascular: regular rate, rhythm, no edema, normal peripheral pulses, + systolic murmur, + pertinent finding (Cannot assess JVD due to habitus) Abdomen/GI: normal bowel sounds, non tender, soft Back: normal inspection, no CVA tenderness Extremities/Musculoskelatal: normal inspection, no calf tenderness, normal capillary refill, no pedal edema, normal range of motion Neurologic/Psych: guidance adviser II-XII nml as tested, no motor/sensory deficits, alert Skin: normal color, warm/dry, no rash Diagnostics Laboratory Results Results Past 24 Hours Test 12/22/16 18:15 12/22/16 19:05 12/22/16 19:22 Range/Units White Blood Count 10.64 4.8-10.8 K/uL Red Blood Count 4.49 4.7-6.1 M/uL Hemoglobin 12.5 14.0-18.0 g/dL Hematocrit 37.2 42-52 % Mean Corpuscular Volume 82.9 80-100 fL Mean Corpuscular Hemoglobin 27.8 25-34 pg Mean Corpuscular Hemoglobin Concent 33.6 32-36 g/dl Platelet Count 311 130-400 K/uL Mean Platelet Volume 9.0 7.4-10.4 fL Neutrophils (%) (Auto) 66.6 % Lymphocytes (%) (Auto) 22.3 % Monocytes (%) (Auto) 7.9 % Eosinophils (%) (Auto) 2.4 % Basophils (%) (Auto) 0.3 % Neutrophils # (Auto) 7.09 1.4-6.5 K/uL Lymphocytes # (Auto) 2.37 1.2-3.4 K/uL Monocytes # (Auto) 0.84 0.11-0.59 K/uL Eosinophils # (Auto) 0.26 0-0.5 K/uL Basophils # (Auto) 0.03 0-0.2 K/uL RDW Standard Deviation 44.0 36.4-46.3 fL RDW Coefficient of Variation 14.5 11.5-14.5 % Immature Granulocyte % (Auto) 0.5 % Immature Granulocyte # (Auto) 0.05 0.00-0.02 K/uL Prothrombin Time 10.0 9.0-12.0 SECONDS Prothromb Time International Ratio 0.9 0.9-1.1 Activated Partial Thromboplast Time 22.5 21.0-31.0 SECONDS Partial Thromboplastin Ratio 0.9 Sodium Level 137 136-145 mmol/L Potassium Level 3.6 3.5-5.1 mmol/L Chloride Level 101 98-107 mmol/L Carbon Dioxide Level 25 21-32 mmol/L Anion Gap 11.0 3-11 mmol/L Blood Urea Nitrogen 17 7-18 mg/dl Creatinine 1.50 0.60-1.40 mg/dl Est Creatinine Clear Calc Drug Dose 52.5 ml/min Estimated GFR () 50.6 Estimated GFR (Non- 43.7 BUN/Creatinine Ratio 11.5 10-20 Random Glucose 262 70-99 mg/dl Calcium Level 8.8 8.5-10.1 mg/dl Total Bilirubin 0.8 0.2-1 mg/dl Direct Bilirubin 0.2 0-0.2 mg/dl Aspartate Amino Transf (AST/SGOT) 13 15-37 U/L Alanine Aminotransferase (ALT/SGPT) 23 12-78 U/L Alkaline Phosphatase 131 45-117 U/L Total Creatine Kinase 73 39-308 U/L Creatine Kinase MB 1.2 0.5-3.6 ng/ml Creatine Kinase MB Ratio 1.6 0-3.0 Total Protein 7.2 6.4-8.2 gm/dl Albumin 3.6 3.4-5.0 gm/dl Lipase 168 73-393 U/L Bedside Troponin I 0.160 0-0.045 ng/ml EKG Ventricular pacing Impression Assessment and Plan 81 y/o M Hx CAD, mixed CHF, DM, LBBB, pacer, HTN, morbid obesity, LUCILA, hypothyroidism. Pt presents with intermittent central CP accompanied by SOB and dizziness. He denies radiation, N/V or diaphoresis. His pain had resolved on arrival to the ER. The pt's BP was elevated at over 190 on arrival to the ER. Initial troponin is elevated. EKG shows ventricular pacing. 1) CP - CAD - troponin elevated - Pt placed on ASA, Bblocker, Statin, full dose Heparin. Serial enzymes and Cardiology consult requested. 2) HTN - uncontrolled on admission - may be cause of trop increase - normalized with NTG - Cont Carvedilol - consider additional agent as needed 3) CHF - cont Lasix , Carvedilol 4) DM - placed on SS 5) LUCILA - CPAP ordered Full code - Full dose Heparin Total time for this admit including review of labs, meds, imaging - discussion with pt and ER attending - 38 min Level of Care Telemetry Resuscitation Status FULL RESUSCITATION VTE Prophylaxis VTE Risk Assessment Done? Y/N: Yes Risk Level: Moderate Given or contraindicated: Other Anticoagulation
[2016-12-22] MEDS ORDERED: GLUCOSE 10 TABS/TUBE PO PRN (22:00)
[2016-12-22] MEDS ORDERED: GLUCOSE 40% GEL 15 GM TUBE PO PRN (22:00)
[2016-12-22] MEDS ORDERED: GLUCAGON FOR INJ 1 MG VIAL SQ PRN (22:00)
[2016-12-22] MEDS ORDERED: DEXTROSE 50% 50 ML SYR IV PRN (22:00)
[2016-12-22] MEDS ORDERED: HEPARIN 25000 UNIT/500 ML D5W ONE (22:07)
[2016-12-22] MEDS ORDERED: HEPARIN SOD (PORCINE) 1000 UNIT/ML 10 ML VIAL ONE (22:07)
[2016-12-22 22:59] VITALS: BP 177/71; PULSE 83; TEMP 37; O2SAT 95; BMI 36.6
[2016-12-22] MEDS ORDERED: HEPARIN 25,000 UNIT/500ML D5W 500 ML IV PRN (23:30)
[2016-12-22] MEDS ORDERED: INSULIN GLARGINE SOLOSTAR 100 UNITS/ML 3 ML PEN SQ ONE (23:30)
[2016-12-23] VITALS (14 sets, daily range): BP systolic 110–174; BP diastolic 47–84; PULSE 73–89; TEMP 36.5–37; O2SAT 92–97
[2016-12-23] MEDS: NITROGLYCERIN OINT 2% 1GM PACKET EXT SCH ×2 (00:18→06:23)
[2016-12-23] MEDS: INSULIN ASPART 100 UNITS/ML 3 ML PEN SC SCH ×4 (00:20→16:56)
[2016-12-23 04:37] LABS: HEMATOCRIT 35.7 % (42-52); MEAN CELL VOLUME 83.6 fL (80-100); MEAN CORPUSCULAR HEMOGLOBIN 27.9 pg (25-34); MEAN CORPUSCULAR HGB CONC 33.3 g/dl (32-36); MEAN PLATELET VOLUME 8.7 fL (7.4-10.4); PLATELET COUNT 275 K/uL (130-400); RED BLOOD COUNT 4.27 M/uL (4.7-6.1); WHITE BLOOD COUNT 12.34 K/uL (4.8-10.8)
[2016-12-23 04:46] LABS: PARTIAL THROMBOPLASTIN RATIO 1.6
[2016-12-23 04:56] LABS: BUN/CREATININE RATIO 12.7 (10-20); CALCIUM 8.5 mg/dl (8.5-10.1); CREATININE 1.34 mg/dl (0.60-1.40)
[2016-12-23] MEDS ORDERED: HEPARIN IV BOLUS 4,000 UNIT in SYRINGE 0 ML IV ONE (05:45)
[2016-12-23] MEDS: LEVOTHYROXINE 200 MCG TAB PO SCH (06:24)
[2016-12-23] MEDS: MAGNESIUM OXIDE 400 MG TAB PO SCH (08:27)
[2016-12-23] MEDS: RANITIDINE HCL 150 MG TAB PO SCH ×2 (08:27→21:19)
[2016-12-23] MEDS: FENOFIBRATE 48 MG TAB PO SCH (08:27)
[2016-12-23] MEDS: FERROUS SULFATE 325 MG TAB PO SCH ×2 (08:27→21:19)
[2016-12-23] MEDS: PAROXETINE 20 MG TAB PO SCH ×2 (08:27→21:18)
[2016-12-23] MEDS: FUROSEMIDE 40 MG TAB PO SCH (08:28)
[2016-12-23] MEDS: CARVEDILOL 25 MG TAB PO SCH ×2 (08:28→21:19)
[2016-12-23] MEDS: ATORVASTATIN 20 MG TAB PO SCH (08:28)
[2016-12-23] MEDS: ASPIRIN 325 MG ECTAB PO SCH (08:28)
[2016-12-23] MEDS ORDERED: PERFLUTREN LIPID MICROSPHERE (DEFINITY) IV ONE (09:24)
[2016-12-23] MEDS ORDERED: MIDAZOLAM HCL 1 MG/ML 2ML VIAL ONE (11:08)
[2016-12-23] MEDS ORDERED: FENTANYL CITRATE INJ 50 MCG/1 ML 2 ML VIAL ONE (11:08)
[2016-12-23] MEDS ORDERED: NiCARDipine HCL INJ 2.5 MG/ML 10 ML AMP ONE (11:08)
[2016-12-23] MEDS ORDERED: HEPARIN SOD (PORCINE) 1000 UNIT/ML 10 ML VIAL ONE ×2 (11:08→12:37)
[2016-12-23] MEDS ORDERED: NITROGLYCERIN/D5W 100MCG/ML 20ML SYR ONE (11:09)
[2016-12-23] MEDS ORDERED: CLOPIDOGREL BISULFATE 300 MG TAB PO ONE (13:00)
--- NOTE | 2016-12-23 13:07 | Procedure Note ---
Pre-Mod Sedation Assessment General Date of Moderate Sedation: Dec 23, 2016. Vital Signs: Vital Signs Past 12 Hours Date Time Temp Pulse Resp B/P (MAP) Pulse Ox O2 Delivery O2 Flow Rate FiO2 12/23/16 08:00 Room Air 12/23/16 07:22 36.5 89 20 120/47 (71) 93 Room Air 12/23/16 04:00 Nasal Cannula CPAP 12/23/16 03:42 36.6 84 20 120/62 (81) 92 Room Air 12/23/16 03:37 83 96 3.0 Review Cardiovascular: regular rate, rhythm, no edema Abdomen: normal bowel sounds, non tender Lungs: chest non-tender, lungs clear Pre-Sedation Airway Assessment Oral Cavity: WNL Able to Visualize Vocal Cords: No Short Thick Neck: No Hx of Sleep Apnea: No Smoking Status: Never Smoker Mallampati Classification: Class III ASA Classification: Class III Procedure Planning Contraindications-for Mod Sed: None Yes Notes The planned sedation has been discussed with the patient and consent obtained. I have identified the patient, determined the appropriateness of sedation and have assessed the patient immediately prior to the procedure. All medicine(s) and interventions are by my order.
--- NOTE | 2016-12-23 13:08 | Procedure Note ---
Post-Mod Sedation Assessment General Date of Moderate Sedation Dec 23, 2016. Vital Signs: Vital Signs Past 12 Hours Date Time Temp Pulse Resp B/P (MAP) Pulse Ox O2 Delivery O2 Flow Rate FiO2 12/23/16 08:00 Room Air 12/23/16 07:22 36.5 89 20 120/47 (71) 93 Room Air 12/23/16 04:00 Nasal Cannula CPAP 12/23/16 03:42 36.6 84 20 120/62 (81) 92 Room Air 12/23/16 03:37 83 96 3.0 Review - Discharge Criteria Vital Signs Stable: Yes Alert/Oriented/Conversant: Yes Returned to Baseline Mental St: Yes Nausea Absent/Minimal: Yes Pain/Discomfort/Absent/Minimal: Yes Normal/Baseline Respirations: Yes Active Bleeding?: No Pt Received D/C Instructions: N/A Prescriptions Given: None Specific Proced. D/C Criteria Distal Pulses Present (Cardiac: Yes Groin site assessed-Card Cath: N/A Voided Prior To Discharge: N/A Discharged Patients Adult Escort/Transportation: Yes
[2016-12-23] MEDS ORDERED: ACETAMINOPHEN 325 MG TAB PO PRN (13:15)
[2016-12-23] MEDS ORDERED: ONDANSETRON INJ 2 MG/ML 2 ML VIAL IV PRN (13:15)
[2016-12-23] MEDS ORDERED: SODIUM CHLORIDE 0.9% 1000ML 1,000 ML IV SCH (13:15)
--- NOTE | 2016-12-23 13:15 | ECHOCARDIOGRAM REPORT ---
*NOTICE TO RECEIVING CONSTITUTION PARTY AGENCY This information is strictly Confidential and protected under [place] law. [place] law prohibits you from making any further disclosure of this information unless further disclosure is expressly permitted by the written consent of the person to whom it pertains or is authorized by law. A general authorization for the release of medical or other information is not sufficient for this purpose. Hospital accepts no responsibility if the information is made available to any other person, INCLUDING THE PATIENT. Interpretation Summary * Name: KERRIE LIMA Study Date: 12/23/2016 08:26 AM BP: 120/47 mmHg * Patient Location: C.2T\S\E219\S\1 HR: 89 * : 1935 (M/d/yyyy) Gender: Male Height: 69 in * Age: 81 yrs Ethnicity: CA Weight: 248 lb * Ordering Physician: Jenni Joe * Referring Physician: Self, Referred * Performed By: Eleonora Arreguin RDCS * * Reason For Study: CHEST PAIN * BSA: 2.3 m2 * -- Conclusions -- * Left ventricular systolic function is normal. * No definite wall motion abnormalities. * Ejection Fraction = 50-55%. * There is mild concentric left ventricular hypertrophy. * Mild to moderate valvular aortic stenosis. * Mild aortic regurgitation. Procedure Details * A contrast injection of Definity was performed to improve assessment of LV function. * Contrast was injected into an intravenous site in the left arm. * One vial of Definity ultrasound contrast was diluted in normal saline to a total volume of 10 ml. A total of '2' ml of solution was administered during imaging. * Lot # [id number] of Definity utilized for procedure. * Expiration date DEC 25. * The attending nurse who injected the contrast agent was NADEEM MAGAÑA RN. Left Ventricle * The left ventricle is normal in size. * There is mild concentric left ventricular hypertrophy. * Ejection Fraction = 50-55%. * Left ventricular systolic function is normal. * No definite wall motion abnormalities. Right Ventricle * The right ventricle is not well visualized. * The right ventricular systolic function is normal as assessed by tricuspid annular plane systolic excursion (TAPSE) (normal >1.5 cm). Atria * The left atrium is mildly dilated. * Right atrium not well visualized. * There is no evidence of atrial septal defect, but resolution does not allow assessment for a patent foramen ovale. Mitral Valve * The mitral valve is grossly normal. * Calcified mitral apparatus. * No significant mitral valve stenosis. * Significant mitral regurgitation is absent. Tricuspid Valve * The tricuspid valve is not well visualized. * There is no tricuspid stenosis. * Significant tricuspid regurgitation is absent. Aortic Valve * The aortic valve is not well visualized. * Mild to moderate valvular aortic stenosis. * Mild aortic regurgitation. Pulmonic Valve * The pulmonary valve is not well seen, but the Doppler examination is normal without significant regurgitation or stenosis. Great Vessels * Borderline aortic root dilatation. * The pulmonary is not well visualized. Pericardium/Pleural * There is no pericardial effusion. Great Vessels * Inferior vena cava not well visualized. MMode 2D Measurements and Calculations IVSd 2.3 cm IVSs 2.6 cm LVIDd 5.5 cm LVIDs 4.1 cm LVPWd 1.5 cm LVPWs 2.2 cm IVS/LVPW 1.5 FS 25.1 % EDV(Teich) 146.0 ml ESV(Teich) 74.3 ml EF(Teich) 49.1 % EDV(cubed) 164.3 ml ESV(cubed) 69.0 ml EF(cubed) 58.0 % % IVS thick 14.9 % % LVPW thick 40.5 % LV mass(C)d 529.4 grams LV mass(C)dI 233.9 grams/m\S\2 LV mass(C)s 523.6 grams LV mass(C)sI 231.3 grams/m\S\2 SV(Teich) 71.7 ml SI(Teich) 31.7 ml/m\S\2 SV(cubed) 95.2 ml SI(cubed) 42.1 ml/m\S\2 Ao root diam 4.1 cm Ao root area 13.4 cm\S\2 LVAd ap4 44.4 cm\S\2 LVLd ap4 9.4 cm EDV(MOD-sp4) 180.0 ml LVAs ap4 29.1 cm\S\2 LVLs ap4 7.9 cm ESV(MOD-sp4) 88.6 ml EF(MOD-sp4) 50.8 % LVAd ap2 47.2 cm\S\2 LVLd ap2 9.9 cm EDV(MOD-sp2) 194.0 ml LVAs ap2 29.1 cm\S\2 LVLs ap2 9.0 cm ESV(MOD-sp2) 81.9 ml EF(MOD-sp2) 57.8 % SV(MOD-sp4) 91.4 ml SI(MOD-sp4) 40.4 ml/m\S\2 SV(MOD-sp2) 112.1 ml SI(MOD-sp2) 49.5 ml/m\S\2 Doppler Measurements and Calculations Ao V2 max 277.7 cm/sec Ao max PG 30.9 mmHg Ao max PG (full) 27.7 mmHg Ao V2 mean 199.4 cm/sec Ao mean PG 17.8 mmHg Ao mean PG (full) 15.9 mmHg Ao V2 VTI 56.6 cm AI max eric 439.3 cm/sec AI max PG 77.2 mmHg AI dec slope 329.8 cm/sec\S\2 AI P1/2t 390.1 msec LV V1 max PG 3.2 mmHg LV V1 mean PG 1.9 mmHg LV V1 max 88.9 cm/sec LV V1 mean 65.1 cm/sec LV V1 VTI 18.1 cm SV(Ao) 757.4 ml SI(Ao) 334.6 ml/m\S\2 TR max eric 260.6 cm/sec
--- NOTE | 2016-12-23 13:20 | Family Medicine Progress Note ---
Progress Note Date of Service Dec 23, 2016. Subjective Pt evaluation today including: conversation w/ patient, physical exam, chart review, lab review Pain: denies discomfort this AM PO Intake: NPO Voiding: no voiding problems This AM pt denies having any cp, sob, dizziness, or n/v. Constitutional: No fever Respiratory: No shortness of breath Cardiovascular: No chest pain Abdomen: No nausea, No vomiting Neurologic: No problem reported (denies dizziness) Medications Current Inpatient Medications Medications (Trade) Dose Ordered Sig/Dimitrios Route Start Time Stop Time Status Last Admin Dose Admin Aspirin (Ecotrin Tab) 325 mg DAILY PO 12/23/16 09:00 01/22/17 08:59 12/23/16 08:28 325 MG Atorvastatin Calcium (Lipitor Tab) 20 mg DAILY PO 12/23/16 09:00 01/22/17 08:59 12/23/16 08:28 20 MG Carvedilol (Coreg Tab) 25 mg Q12 PO 12/23/16 09:00 01/22/17 08:59 12/23/16 08:28 25 MG Cyclobenzaprine HCl (Flexeril Tab) 10 mg Q8 PRN PO 12/22/16 21:15 01/21/17 21:14 Fenofibrate (Tricor Tab) 48 mg DAILY PO 12/23/16 09:00 01/22/17 08:59 12/23/16 08:27 48 MG Ferrous Sulfate (Feosol Tab) 325 mg BID PO 12/23/16 09:00 01/22/17 08:59 12/23/16 08:27 325 MG Furosemide (Lasix Tab) 40 mg DAILY PO 12/23/16 09:00 01/22/17 08:59 12/23/16 08:28 40 MG Levothyroxine Sodium (Synthroid Tab) 200 mcg DAILYBB PO 12/23/16 06:00 01/22/17 06:59 12/23/16 06:24 200 MCG Magnesium Oxide (Mag-Ox Tab) 400 mg DAILY PO 12/23/16 09:00 01/22/17 08:59 12/23/16 08:27 400 MG Oxycodone/ Acetaminophen (Percocet 5-325mg Tab) 1 tab BID PRN PO 12/22/16 21:15 01/05/17 21:14 Paroxetine HCl (pAXil TAB) 40 mg BID PO 12/23/16 09:00 01/22/17 08:59 12/23/16 08:27 40 MG Ranitidine HCl (zANTac TAB) 150 mg BID PO 12/23/16 09:00 01/22/17 08:59 12/23/16 08:27 150 MG Tamsulosin HCl (Flomax Cap) 0.4 mg HS PO 12/23/16 21:00 01/22/17 20:59 Miscellaneous Information (Order Awaiting Action) 1 ea QS N/A 12/23/16 08:00 01/22/17 07:59 Al Hydrox/Mg Hydrox/Simethicone (Maalox Max Susp) 15 ml Q4H PRN PO 12/22/16 21:15 01/21/17 21:14 Magnesium Hydroxide (Milk Of Magnesia Susp) 30 ml Q12H PRN PO 12/22/16 21:15 01/21/17 21:14 Ondansetron HCl (Zofran Inj) 4 mg Q6H PRN IV 12/22/16 21:15 01/21/17 21:14 Nitroglycerin (Nitrostat Tab) 0.4 mg UD PRN SL 12/22/16 21:15 01/21/17 21:14 Nitroglycerin (Nitroglycerin 2% Oint) 1 inch Q6H EXT 12/23/16 00:00 01/22/17 00:00 12/23/16 06:23 1 INCH Morphine Sulfate (MoRPHine SULFATE INJ) 2 mg Q30M PRN IV 12/22/16 21:15 01/05/17 21:14 Polyethylene (Miralax Powder Packet) 17 gm DAILY PRN PO 12/22/16 21:15 01/21/17 21:14 Insulin Aspart (novoLOG ASPART) SLIDING SCALE G... Q6 SC 12/23/16 00:00 01/22/17 00:00 12/23/16 06:29 2 UNITS Glucose (Glucose 40% Gel) 15-30 GRAMS 15 GRAMS... UD PRN PO 12/22/16 22:00 01/21/17 21:59 Glucose (Glucose Chew Tab) 4-8 Tablets 4 Tabl... UD PRN PO 12/22/16 22:00 11/14/17 21:59 Dextrose (Dextrose 50% 50ML Syringe) 25-50ML OF 50% DW IV FOR... UD PRN IV 12/22/16 22:00 01/21/17 21:59 Glucagon (Glucagon Inj) 1 mg UD PRN SQ 12/22/16 22:00 01/21/17 21:59 Heparin Sodium/ Dextrose 500 ml @ 37 mls/hr [id number] PRN IV 12/22/16 23:30 01/21/17 23:29 12/23/16 06:20 37 MLS/HR Insulin Glargine (Lantus Solostar Pen) 20 units QPM SC 12/23/16 21:00 01/22/17 20:59 Objective Vital Signs Date Time Temp Pulse Resp B/P (MAP) Pulse Ox O2 Delivery O2 Flow Rate FiO2 12/23/16 08:00 Room Air 12/23/16 07:22 36.5 89 20 120/47 (71) 93 Room Air 12/23/16 04:00 Nasal Cannula CPAP 12/23/16 03:42 36.6 84 20 120/62 (81) 92 Room Air 12/23/16 03:37 83 96 3.0 12/22/16 22:59 37.0 83 22 177/71 95 Nasal Cannula 2.0 12/22/16 22:26 80 20 157/84 96 Nasal Cannula 2.0 12/22/16 21:00 82 20 131/72 96 Nasal Cannula 2.0 12/22/16 20:14 81 20 161/72 94 Nasal Cannula 2.0 12/22/16 19:31 90 12/22/16 18:57 91 Room Air 12/22/16 18:52 91 Room Air 12/22/16 18:52 36.8 87 22 161/90 91 Room Air Physical Exam General Appearance: no apparent distress, + obese Eyes: normal inspection Neck: supple, no JVD (JVP at clavicle while seated at a 45 degree angle and does not increase on abdominal pressure) Respiratory/Chest: lungs clear, normal breath sounds Cardiovascular: regular rate, rhythm, + systolic murmur (LSB) Abdomen: normal bowel sounds, non tender, + pertinent finding (reducible umbilical hernia) Extremities: no pedal edema Neurologic/Psychiatric: alert Laboratory Results 12/23/16 04:16 12/23/16 04:16 Test 12/22/16 18:15 12/22/16 19:05 12/22/16 19:22 12/23/16 04:16 Immature Granulocyte % (Auto) 0.5 % White Blood Count 10.64 K/uL (4.8-10.8) Red Blood Count 4.49 M/uL (4.7-6.1) 4.27 M/uL (4.7-6.1) Hemoglobin 12.5 g/dL (14.0-18.0) Hematocrit 37.2 % (42-52) Mean Corpuscular Volume 82.9 fL (80-100) 83.6 fL (80-100) Mean Corpuscular Hemoglobin 27.8 pg (25-34) 27.9 pg (25-34) Mean Corpuscular Hemoglobin Concent 33.6 g/dl (32-36) 33.3 g/dl (32-36) Platelet Count 311 K/uL (130-400) Mean Platelet Volume 9.0 fL (7.4-10.4) 8.7 fL (7.4-10.4) Neutrophils (%) (Auto) 66.6 % Lymphocytes (%) (Auto) 22.3 % Monocytes (%) (Auto) 7.9 % Eosinophils (%) (Auto) 2.4 % Basophils (%) (Auto) 0.3 % Neutrophils # (Auto) 7.09 K/uL (1.4-6.5) Lymphocytes # (Auto) 2.37 K/uL (1.2-3.4) Monocytes # (Auto) 0.84 K/uL (0.11-0.59) Eosinophils # (Auto) 0.26 K/uL (0-0.5) Basophils # (Auto) 0.03 K/uL (0-0.2) Immature Granulocyte # (Auto) 0.05 K/uL (0.00-0.02) Prothrombin Time 10.0 SECONDS (9.0-12.0) Prothromb Time International Ratio 0.9 (0.9-1.1) Total Bilirubin 0.8 mg/dl (0.2-1) Direct Bilirubin 0.2 mg/dl (0-0.2) Aspartate Amino Transf (AST/SGOT) 13 U/L (15-37) Alanine Aminotransferase (ALT/SGPT) 23 U/L (12-78) Alkaline Phosphatase 131 U/L (45-117) Total Creatine Kinase 73 U/L (39-308) Creatine Kinase MB 1.2 ng/ml (0.5-3.6) Total Protein 7.2 gm/dl (6.4-8.2) Albumin 3.6 gm/dl (3.4-5.0) Lipase 168 U/L (73-393) Creatine Kinase MB Ratio (0-3.0) Bedside Troponin I 0.160 ng/ml (0-0.045) RDW Standard Deviation 44.0 fL (36.4-46.3) RDW Coefficient of Variation 14.5 % (11.5-14.5) Anion Gap 8.0 mmol/L (3-11) Est Creatinine Clear Calc Drug Dose 55.3 ml/min Estimated GFR () 58.0 Estimated GFR (Non- 50.0 BUN/Creatinine Ratio 12.7 (10-20) Calcium Level 8.5 mg/dl (8.5-10.1) Magnesium Level 2.0 mg/dl (1.8-2.4) Troponin I 0.162 ng/ml (0-0.045) Test 12/23/16 06:21 12/23/16 12:30 Bedside Glucose 210 mg/dl (70-99) Assessment and Plan 81 y/o M with Hx of CAD and NSTEMI in 2012 with stenting, mixed CHF (EF 40-45% and grade 2 diastolic dysfunction), DM, LBBB, pacer placed on 07/17/16, HTN, morbid obesity, LUCILA, hypothyroidism (following thyroidectomy for thyroid cancer) . Presented with intermittent central CP accompanied by SOB and dizziness. He denied radiation, N/V or diaphoresis. His pain had resolved on arrival to the ER. The pt's BP was elevated at over 190 on arrival to the ER. Initial troponin was elevated now downtrending. EKG showed ventricular pacing. He remains asymptomatic. NSTEMI with h/o CAD - s/p C with PCI and PATRICE placed in mid RCA. -Continue on ASA and add clopidogrel for dual antiplatelet therapy for at least 1 year given stent placement -Continue Carvedilol, and atorvastatin -Stop heparin per cardiology -ECHO - EF 5-55%; nl LV systolic function; mild concentric LVH; mild-mod aortic valve stenosis and mild aortic regurg -Cardiology consulted -cardiac cath: 95% mid RCA stenosis with stent placement; Residual mild- moderate multivessel disease: 40-50% proximal LAD, 40-50% ostial and mid circumflex; Patent mid LAD/3rd Diagonal, OM1 and mid RCA stents; Normal intracardiac filling pressure -Continue checking serial enzymes -Add ARB as BP allows HTN - presented with SBP in the 190s to the ED which may have contributed to elevated troponin and resolved with nitro. NOW controlled -Continue Carvedilol 25mg BID CHF - stable, remains asymptomatic -Continue Lasix and Carvedilol DM - BSG 180s-200 despite being NPO for possible cath -On lantus 35 units BID and regular 5 units at home -HgbA1c 10.5 on 06/09/16 -Placed on SS - Novolog with goal of 120-160 and CF of 40 -Ordered Lantus 20units QPM -Ordered HgbA1c for tomorrow LUCILA - CPAP ordered DVT prophylaxis - heparin Full code Resident Involvement: Resident Care Provided Care Provided: Adult Hospital Medicine Reviewed: Pt Seen/Exam by Me History no further chest pain this am. Constitutional: denies: fever Respiratory: negative: short of breath Cardiovascular: denies chest pain Gastrointestinal/Abdominal: negative: abdominal pain, nausea General Appearance: no apparent distress Respiratory: lungs clear, no respiratory distress Cardiovascular: regular rate, rhythm Neurologic/Psychiatric: alert, oriented x 3 Skin Characteristics: warm/dry Assessment/Plan Resident Physician Supervision Note: I independently interviewed and examined the patient and verified the nicholas history and physical, reviewed labs and image studies, discussed the case with the resident Dr. Gan and agree with the findings and care plan.
--- NOTE | 2016-12-23 13:29 | Cardiac Catheterization ---
Procedure Note Procedure Date Dec 23, 2016. Pre-Procedure Diagnosis Non STEMI AUC Score 8 Post-Procedure Diagnosis Severe CAD, Successful PCI, Normal Intracardiac Pressures Procedure(s) Performed Coronary Angiography, Left Heart Cath, Drug Eluting Stent [employer] Practitioner Scot Service Desk Analyst(s) Smita Estimated Blood Loss 25 Medication(s) Clopidogrel, Fentanyl, Heparin, Nitroglycerin, Versed, Lidocaine 1% Summary of Findings Indication: High-Risk NSTEMI Access: 6Fr slender Right Radial Artery --> converted to 6Fr right [employer] AGENT Catheters: [place], JL3.5, JL4, pigtail; JR4 guide Findings: LM - 20% distal stenosis LAD - Mild diffuse proximal disease with 40-50% focal stenosis at take-off of 1st diagonal. Mid segment with widely patent stents at bifurcation into 3rd diagonal. Small 2nd diagonal with mild diffuse disease. Circumflex - 40-50% ostial stenosis, 40% stenosis after take-off of 1st OM. OM1 with widely patent stent. RCA - Dominant, large caliber vessel, widely patent early-mid stent, 95% stenosis in mid segment after prior stent; distal RCA/R-PDA with luminal irregularities. LVEDP - 11 -- PCI -- Antithrombotic therapy: Heparin, Clopidogrel Procedure: Due to significant subclavian tortuosity converted from radial to femoral approach RCA cannulated with JR4 guide Whisper wire passed across lesion into distal vessel Mid RCA lesion predilated with 3.0 compliant balloon With the aid of a guideliner dilated lesion stented with 4.0 x 28 Xience PATRICE Stent post-dilated with 4.5 noncompliant balloon IC vasodilators administered for spasm Post procedure MARLYS 3 flow, stent well expanded with minimal residual stenosis and no apparent cardiac complications. Arterial Closure: TR Band radial; AngioSeal for INSURANCE AND FINANCIAL SERVICES AGENT Summary: 1. Severe single vessel coronary artery disease - 95% mid RCA stenosis 2. Residual mild-moderate multivessel disease - 40-50% proximal LAD, 40-50% ostial and mid circumflex. 3. Patent mid LAD/3rd Diagonal, OM1 and mid RCA stents 4. Normal intracardiac filling pressure 5. Successful PCI of mid RCA with single PATRICE (4.0 x 28 Xience, post-dilated with 4.5 NC balloon) Recommendations: To PCU for continued monitoring Loaded with 600 clopidogrel Continue dual-antiplatelet therapy with ASA/Clopidogrel for at least 1 year Stop heparin infusion, nitropatch Continue statin, beta-prakash, and ASCVD risk factor modification Add ARB as BP allows Consult cardiac Rehab Hemodynamics Rest Ao: 140/61/94 Final Ao: 128/58/86 LV: 148/11 Recommendations PCI without planned CABG Specimens None Radiation Exposure (mGy) 4203 Contrast (mls) 150 Visi Fluids (cc crystalloids) 170 Drains None Anesthesia Moderate Procedural Complication(s) None Disposition PCU ACC Data Cardiac Status Clinical evaluation leading to the procedure CAD Presntation: Non STEMI Anginal Classification: CCS IV Heart Failure: No, NYHA Class: CCS I Cardiogenic Shock w/in 24Hrs: No Cardiac Arrest w/in 24Hrs: No Imaging studies past 6 months: Yes Stress studies past 6 months: No Closure Device Percutaneous Entry Location: Radial Closure Device: Angio-Seal, Radial Band Recommendations: PCI without planned CABG PCI Indication: PCI for high risk Non-STEMI Lesion Segment Name: mid RCA Culprit Artery: Yes Stenosis Prior to Rx (%): 95 Chronic Total Occlusion: No IVUS: No FFR: No Pre-Procedure MARLYS Flow: 3 Previously Treated Lesion: No Lesion Complexity: Non-High/Non-C Lesion Length (mm): 15 Thrombus Present: No Bifurcation Lesion: No Guidewire Across Lesion: Yes Guidewire: Stenosis Post-Procedure (%): 0 Post-Procedure MARLYS Flow: 3 Device(s) Deployed: Yes Intraprocedure Events Significant Dissection: No Perforation: No
--- NOTE | 2016-12-23 14:25 | CARDIOLOGY CONSULTATION ---
DATE OF CONSULTATION: 12/23/2016 CONSULTATION REQUESTED BY: Dr. Feliciano. REASON FOR CONSULTATION: NSTEMI. HISTORY OF PRESENT ILLNESS: Mr. Bonilla is a 81-year-old man known to me from prior admissions with a history of coronary artery disease status post prior multivessel stenting, diabetes, chronic kidney disease, COPD/obstructive sleep apnea who was admitted yesterday in the setting of acute onset of dizziness, chest pain. The cardiac history as outlined below. Briefly, the patient was last seen in the hospital in June of 2016 when presented with atypical chest pain and dizziness. At that time, underwent a nuclear SPECT which showed moderate to severe LV dysfunction with an EF of less than 35% and suggestion of anteroseptal and inferior infarcts, but no significant ischemia. He received his outpatient cardiac care from the [facility] and later underwent a biventricular ICD placement at the [facility] in July of 2016. Since that time, overall, he states he has been doing well. He is limited at baseline due to fatigue, states he can walk about 50 feet before getting tired. On the day of admission, he was in his usual state of health, was lying down working on his car when stood up and then acutely developed dizziness and some mild chest pain. This was substernal, associated with mild shortness of breath, not as severe as he has had with prior MIs. When he checked his blood pressure, which was up into the 190s and as a result called EMS. Upon arrival to the ED, the patient was in a paced rhythm, was chest pain free. His initial blood pressures were in the 170s. He had initial troponin was 0.16, which trended up to 0.18, overnight. He was started on heparin infusion, monitored on telemetry and had a repeat echocardiogram this a.m. which showed mild LV dysfunction with apical anteroseptal severe hypokinesis/akinesis and moderate inferior hypokinesis. Decision was made to proceed with cardiac catheterization. PAST MEDICAL HISTORY: 1. Coronary artery disease status post prior LA and PCI, initial stents were placed in 2002 in [place], later 2002 had stenting to his mid RCA and OM1 lesions in [place]. 2. Ischemic cardiomyopathy with prior EF less than 35%, status post biventricular ICD at [facility] - July 2016. 3. Underlying left bundle branch block. 4. COPD. 5. Obstructive sleep apnea, on BiPAP 6. Morbid obesity. 7. GERD. 8. Thyroidectomy secondary to thyroid cancer. 9. Kidney stones. 10. Umbilical hernia. 11. BPH. 12. Diabetes, on insulin. HOME MEDICATIONS: Include aspirin 325, atorvastatin 20 mg daily, carvedilol 25 q. 12, cyanocobalamin q. monthly, Flexeril, vitamin D, fenofibrate, ferrous sulfate, furosemide 40 mg daily, insulin Glargine, insulin regular, ketotifen eyedrops, levothyroxine, magnesium, nitroglycerin sublingual tablets, Percocet, paroxetine, ranitidine and Flomax. FAMILY HISTORY: Noncontributory ____ known severe disease. SOCIAL HISTORY: The patient lives alone. 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 Denies any recent tobacco or alcohol use. ALLERGIES: ALLERGIC TO LISINOPRIL. REVIEW OF SYSTEMS: Ten point review of systems completed and otherwise negative or listed in HPI. PHYSICAL EXAMINATION: VITAL SIGNS: Temperature 36.5, pulse 89, blood pressure 120/47 and is satting 93% on room air. GENERAL: The patient appeared comfortable in no acute distress. HEENT: Sclerae are anicteric. Oropharynx is clear. NECK: Supple with no lymphadenopathy. LUNGS: Clear to auscultation bilaterally. HEART: He had a regular rate and rhythm with no murmurs, rubs or gallops. ABDOMEN: Soft, nontender, nondistended with positive bowel sounds. EXTREMITIES: Warm, good intact distal pulses including 2+ radial pulses bilaterally. SKIN: Showed no rashes or lesions. NEUROLOGIC: Nonfocal. PSYCHIATRIC: He is alert and oriented and appropriate. LABORATORY DATA: White blood cell count 12.3, hemoglobin 11.9, platelets of 275. Troponin 0.16-0.19, down to 0.16. Sodium 137, potassium 4.0, BUN 17, creatinine 1.3. IMAGING DATA: Chest x-ray showed no acute cardiopulmonary process. Echocardiogram showed low normal LV function, EF 45-50%, apical and anteroseptal severe hypokinesis, mild inferior hypokinesis, mild to moderate aortic stenosis, mild aortic regurgitation. EKG showed synchronously paced rhythm at a ventricular rate of 88. IMPRESSION AND PLAN: 1. Wad-BB-opvlctt elevation myocardial infarction. 2. Coronary artery disease status post multivessel stenting. 3. Insulin-dependent diabetes. 4. Chronic renal insufficiency. 5. Prior ischemic cardiomyopathy status post biventricular implantable cardioverter defibrillator. Mr. Bonilla is here with an acute episode of chest pressure and associated dizziness, found to have an elevated troponin on admission. The patient has been chest pain free and hemodynamically stable since presentation. As patient here with typical symptoms and elevated troponin with prior history of multivessel disease, feel we should proceed with cardiac catheterization. I discussed this with the patient including risks, benefits, and alternatives of the procedure and is willing to proceed. We will plan for cardiac catheterization via right radial artery. Continue heparin until cafeteria monitor for procedure. Further recommendations pending findings of cardiac catheterization. Thank you for consultation.
[2016-12-23] MEDS ORDERED: INSULIN GLARGINE SOLOSTAR 100 UNITS/ML 3 ML PEN SC SCH (21:00)
[2016-12-23] MEDS ORDERED: TAMSULOSIN HCL 0.4 MG CAP PO SCH (21:00)
[2016-12-23] MEDS ORDERED: NURSING VERBAL MED ORDER ONE (21:30)
[2016-12-24 03:41] VITALS: BP 169/91; PULSE 20; PULSE 85; TEMP 36.8; O2SAT 97
[2016-12-24] MEDS: LEVOTHYROXINE 200 MCG TAB PO SCH (05:31)
[2016-12-24 06:19] LABS: BASO % 0.2 %; BASO ABS # 0.02 K/uL (0-0.2); COMPLETE YES; EOS % 1.6 %; HEMATOCRIT 35.2 % (42-52); IG% 0.3 %; LYMPH % 17.3 %; LYMPH ABS # 1.63 K/uL (1.2-3.4); MEAN CORPUSCULAR HEMOGLOBIN 27.8 pg (25-34); MEAN CORPUSCULAR HGB CONC 33.5 g/dl (32-36); MEAN PLATELET VOLUME 8.8 fL (7.4-10.4); MONO % 10.2 %; NEUT % 70.4 %; PLATELET COUNT 236 K/uL (130-400); RED BLOOD COUNT 4.24 M/uL (4.7-6.1); WHITE BLOOD COUNT 9.41 K/uL (4.8-10.8)
[2016-12-24 06:48] LABS: BUN/CREATININE RATIO 10.7 (10-20); CALCIUM 8.7 mg/dl (8.5-10.1); CREATININE 1.29 mg/dl (0.60-1.40); POTASSIUM 3.5 mmol/L (3.5-5.1)
[2016-12-24] MEDS ORDERED: INSULIN ASPART 100 UNITS/ML 3 ML PEN SC SCH (07:00)
[2016-12-24 07:04] LABS: ESTIMATED AVERAGE GLUCOSE 220 mg/dl; HA1C FLAG Normal (Normal)
[2016-12-24 07:47] VITALS: BP 155/77; PULSE 65; TEMP 36.9; O2SAT 95
[2016-12-24] MEDS: ASPIRIN 325 MG ECTAB PO SCH (07:52)
[2016-12-24] MEDS: RANITIDINE HCL 150 MG TAB PO SCH (07:52)
[2016-12-24] MEDS: MAGNESIUM OXIDE 400 MG TAB PO SCH (07:52)
[2016-12-24] MEDS: FENOFIBRATE 48 MG TAB PO SCH (07:52)
[2016-12-24] MEDS: FERROUS SULFATE 325 MG TAB PO SCH (07:52)
[2016-12-24] MEDS: FUROSEMIDE 40 MG TAB PO SCH (07:53)
[2016-12-24] MEDS: CARVEDILOL 25 MG TAB PO SCH (07:53)
[2016-12-24] MEDS: ATORVASTATIN 20 MG TAB PO SCH (07:53)
[2016-12-24] MEDS: PAROXETINE 20 MG TAB PO SCH (07:53)
[2016-12-24] MEDS ORDERED: PARO20TA3 PO (08:40)
[2016-12-24] MEDS ORDERED: CLOPIDOGREL BISULFATE 75 MG TAB PO SCH (09:00)
[2016-12-24] MEDS ORDERED: ASPEC81 PO (11:11)
[2016-12-24] MEDS ORDERED: INSDGIPEN SC (11:11)
[2016-12-24] MEDS ORDERED: PLV75 PO (11:11)
--- NOTE | 2016-12-24 11:14 | Discharge Instructions ---
Discharge Instructions Date of Service Dec 24, 2016. Admission Reason for Admission: Chest Pain; Elevated Troponin Discharge Discharge Diagnosis / Problem: NSTEMI, s/p Mid RCA PCI and stent placement Discharge Goals Goal(s): Improve disease control Activity Recommendations Activity Limitations: as noted below ACTIVITY RECOMMENDATIONS: Excess manipulation of the wrist should be avoided for the next 24-48 hours. * No lifting over 2 pounds (approximately a 1/2 gallon of milk) with the utilized arm for 24 hours. * No strenuous activity such as bowling or tennis for 3 days. * Keep the site of the procedure covered with a bandage for 24 hours. *You may shower the day after the procedure. Do not take a tub bath or submerge the puncture site in water for the next 3 days. *Do not operate any motorized equipment for 3 days. SPECIAL CARE INSTRUCTIONS: The site may be slightly bruised and sore following your procedure. Should any of the following occur, contact the Dr. who performed your procedure. 1. Redness/inflammation, swelling, chills, or fever, or colored drainage at procedure site within 3-7 days after your procedure. 2. Coldness, discoloration, ongoing numbness, severe pain, or swelling. Expect mild tingling of hand and tenderness at the puncture site for up to three days. If this persists beyond three days, or other symptoms develop, notify the Dr. who performed your procedure. BLEEDING: If the procedure site on your wrist begins to bleed, do not panic 1. Place 1 or 2 fingers firmly just slightly above the insertion site to stop the bleeding. You may be able to feel your pulse as you hold pressure. 2. Lift your finger after 5 minutes to see if the bleeding has stopped. 3. Once the bleeding has stopped, gently wipe the wrist area clean with a bandage. * If the bleeding from your wrist does not stop after 10 minutes, or if there is a large amount of bleeding or spurting, call 911 (do not drive yourself to the hospital). SKIN IRRITATION: * You may experience some redness and/or swelling in the area where radiation was administered. If any skin irritation occurs, please contact your family physician. FOLLOW UP VISIT: Keep any scheduled doctor appointments. . Instructions / Follow-Up Instructions / Follow-Up Follow up with Dr. Ellison in 1 to 2 weeks Home Care: * Take your medications exactly as directed. Don't skip doses. * Remember that recovery after a heart attack takes time. Plan to rest for at lease 4-8 weeks while you recover. Then return to normal activity when your doctor says it's okay. * Ask your doctor about joining a heart rehabilitation program. * Tell your doctor if you are feeling depressed. Feelings of sadness are common after a heart attack, but it is important that you speak to someone if you are feeling overwhelmed by these feelings. * If you are having chest pain, call 911 for an ambulance. Do NOT drive yourself to the hospital. * Ask your family members to learn CPR. * Learn to take your own blood pressure and pulse. Keep a record of your results. Ask your doctor when you should seek emergency medical attention. He or she will tell you which blood pressure reading is dangerous. Lifestyle Changes: * Maintain a healthy weight. Get help to lose any extra pounds. * Cut back on salt. * Limit canned, dried, packaged, and fast foods. * Don't add salt to your food. * Season foods with herbs instead of salt when you cook. * Break the smoking habit. Enroll in a stop-smoking program to improve your chances of success. * Limit fatty foods. * Ask your doctor about having your lipid levels checked regularly. * Build up your activity according to your doctor's recommendation. * Ask your doctor when it's okay to resume sexual activity. * Tell your doctor about any erectile dysfunction (ED) medication you are taking. Some ED medications are not safe if you take certain heart medications. * Try to manage stress. Follow Up: It is important for you to keep your follow up appointments with your medical provider. Current Hospital Diet Patient's current hospital diet: AHA Diet (Heart Healthy), Diabetes Type 2 Diet Discharge Diet Recommended Diet: AHA Diet (Heart Healthy) Pending Studies Studies pending at discharge: no Laboratory Results Hemoglobin A1c Test 12/24/16 05:58 Range/Units Estimated Average Glucose 220 mg/dl Hemoglobin A1c 9.3 H 4.5-5.6 % Medical Emergencies . Who to Call and When: Medical Emergencies: If at any time you feel your situation is an emergency, please call 911 immediately. Call 911 immediately or go to your nearest Emergency Room if you experience any of the following: Warning Signs and Symptoms of a Heart Attack * Chest pain that is not relieved by medication * Shortness of breath . Non-Emergent Contact Non-Emergency issues call your: Primary Care Provider . . "Provider Documentation" section prepared by Raven Ribeiro. . AMI Core Measures Reason no ASA as I/P: Treatment provided - N/A Reason no ASA at D/C: Treatment provided - N/A Reason no statin as I/P: Treatment provided - N/A Reason no statin at D/C: Treatment provided - N/A VTE Core Measure Inpt VTE Proph given/why not?: Other Anticoagulation
[2016-12-24 11:16] VITALS: BP 155/77; PULSE 65; TEMP 36.9; O2SAT 95
--- NOTE | 2016-12-24 11:17 | Cardiology Follow-Up ---
Subjective Subjective Date of Service: Dec 24, 2016. Pt evaluation today including: conversation w/ patient, physical exam, chart review, lab review, review of studies, review of inpatient medication list Additional Details: Patient feeling well this morning. No recurrent chest pain. No pain at right radial artery access site. No pain at femoral artery access site. Telemetry reviewed--paced rhythm. No events Problem List Medical Problems: (1) Acute renal failure Status: Acute (2) COPD exacerbation Status: Acute (3) Elevated troponin Status: Acute (4) Hypoxia Status: Acute (5) Left chest pressure Status: Acute (6) Precordial chest pain Status: Acute (7) Renal insufficiency Status: Acute (8) Substernal chest pain Status: Acute Review of Systems Constitutional: No fever Respiratory: No shortness of breath Cardiac: No chest pain Abdomen: No nausea, No vomiting Neurologic: No problem reported (denies dizziness) Objective Vital Signs Last Vital Signs Documentation Date Time Temp Pulse Resp B/P (MAP) Pulse Ox O2 Delivery O2 Flow Rate FiO2 12/24/16 08:00 Room Air 12/24/16 07:47 36.9 65 18 155/77 (103) 95 12/23/16 22:22 3.0 Physical Exam: General Appearance: no apparent distress, + obese Neck: supple, no JVD (JVP at clavicle while seated at a 45 degree angle and does not increase on abdominal pressure) Respiratory/Chest: lungs clear, normal breath sounds Cardiovascular: regular rate, rhythm, + systolic murmur (LSB) Abdomen: normal bowel sounds, non tender Extremities: no pedal edema, + pertinent finding (Right radial artery--no ecchymosis/hematoma, intact distal pulses. Right common femoral artery--no ecchymosis or hematoma, intact pulse) Neurologic/Psychiatric: alert Skin: warm/dry Assessment and Plan 1. NSTEMI--post PCI with PATRICE to mid RCA 2. Residual intermediate multivessel disease 3. Hypertension 4. Ischemic cardiomyopathy status post Bi V ICD 5. Chronic renal insufficiency 6. Diabetes Doing well post procedure, no recurrent chest pain, hemodynamically and electrically stable. No apparent access site complications Stable laboratory studies From a cardiac standpoint patient okay for discharge today. Follow up with his public information officer at the [place], has appointment scheduled in [place] within the next several weeks -continue dual antiplatelet therapy with clopidogrel and aspirin for at least 1 year--would reduce aspirin dose from 325 to 81 mg -continue current beta-prakash -continue current statin -blood pressure above goal--would add ARB, losartan 25 mg daily Medications: Current Inpatient Medications Medications (Trade) Dose Ordered Sig/Dimitrios Route Start Time Stop Time Status Last Admin Dose Admin Aspirin (Ecotrin Tab) 325 mg DAILY PO 12/23/16 09:00 01/22/17 08:59 12/24/16 07:52 325 MG Atorvastatin Calcium (Lipitor Tab) 20 mg DAILY PO 12/23/16 09:00 01/22/17 08:59 12/24/16 07:53 20 MG Carvedilol (Coreg Tab) 25 mg Q12 PO 12/23/16 09:00 01/22/17 08:59 12/24/16 07:53 25 MG Cyclobenzaprine HCl (Flexeril Tab) 10 mg Q8 PRN PO 12/22/16 21:15 01/21/17 21:14 Fenofibrate (Tricor Tab) 48 mg DAILY PO 12/23/16 09:00 01/22/17 08:59 12/24/16 07:52 48 MG Ferrous Sulfate (Feosol Tab) 325 mg BID PO 12/23/16 09:00 01/22/17 08:59 12/24/16 07:52 325 MG Furosemide (Lasix Tab) 40 mg DAILY PO 12/23/16 09:00 01/22/17 08:59 12/24/16 07:53 40 MG Levothyroxine Sodium (Synthroid Tab) 200 mcg DAILYBB PO 12/23/16 06:00 01/22/17 06:59 12/24/16 05:31 200 MCG Magnesium Oxide (Mag-Ox Tab) 400 mg DAILY PO 12/23/16 09:00 01/22/17 08:59 12/24/16 07:52 400 MG Oxycodone/ Acetaminophen (Percocet 5-325mg Tab) 1 tab BID PRN PO 12/22/16 21:15 01/05/17 21:14 Ranitidine HCl (zANTac TAB) 150 mg BID PO 12/23/16 09:00 01/22/17 08:59 12/24/16 07:52 150 MG Tamsulosin HCl (Flomax Cap) 0.4 mg HS PO 12/23/16 21:00 01/22/17 20:59 12/23/16 21:18 0.4 MG Miscellaneous Information (Order Awaiting Action) 1 ea QS N/A 12/23/16 08:00 01/22/17 07:59 Al Hydrox/Mg Hydrox/Simethicone (Maalox Max Susp) 15 ml Q4H PRN PO 12/22/16 21:15 01/21/17 21:14 Magnesium Hydroxide (Milk Of Magnesia Susp) 30 ml Q12H PRN PO 12/22/16 21:15 01/21/17 21:14 Ondansetron HCl (Zofran Inj) 4 mg Q6H PRN IV 12/22/16 21:15 01/21/17 21:14 Nitroglycerin (Nitrostat Tab) 0.4 mg UD PRN SL 12/22/16 21:15 01/21/17 21:14 Morphine Sulfate (MoRPHine SULFATE INJ) 2 mg Q30M PRN IV 12/22/16 21:15 01/05/17 21:14 Polyethylene (Miralax Powder Packet) 17 gm DAILY PRN PO 12/22/16 21:15 01/21/17 21:14 Glucose (Glucose 40% Gel) 15-30 GRAMS 15 GRAMS... UD PRN PO 12/22/16 22:00 01/21/17 21:59 Glucose (Glucose Chew Tab) 4-8 Tablets 4 Tabl... UD PRN PO 12/22/16 22:00 01/21/17 21:59 Dextrose (Dextrose 50% 50ML Syringe) 25-50ML OF 50% DW IV FOR... UD PRN IV 12/22/16 22:00 01/21/17 21:59 Glucagon (Glucagon Inj) 1 mg UD PRN SQ 12/22/16 22:00 01/21/17 21:59 Insulin Glargine (Lantus Solostar Pen) 20 units QPM SC 12/23/16 21:00 01/22/17 20:59 12/23/16 21:38 20 UNITS Clopidogrel Bisulfate (plAVix TAB) 75 mg QAM PO 12/24/16 09:00 01/23/17 08:59 12/24/16 07:53 75 MG Acetaminophen (Tylenol Tab) 650 mg Q4H PRN PO 12/23/16 13:15 01/22/17 13:14 Insulin Aspart (novoLOG ASPART) SLIDING SCALE G... ACHS SC 12/24/16 07:00 01/23/17 06:59 Paroxetine HCl (pAXil TAB) 20 mg DAILY PO 12/25/16 09:00 01/24/17 08:59 Lab Results: 12/24/16 05:58 Red Blood Count 4.24, Mean Corpuscular Volume 83.0, Mean Corpuscular Hemoglobin 27.8, Mean Corpuscular Hemoglobin Concent 33.5, Mean Platelet Volume 8.8, Neutrophils (%) (Auto) 70.4, Lymphocytes (%) (Auto) 17.3, Monocytes (%) (Auto) 10.2, Eosinophils (%) (Auto) 1.6, Basophils (%) (Auto) 0.2, Neutrophils # (Auto ) 6.62, Lymphocytes # (Auto) 1.63, Monocytes # (Auto) 0.96, Eosinophils # (Auto ) 0.15, Basophils # (Auto) 0.02 12/24/16 05:58 Test 12/23/16 12:57 12/24/16 05:58 12/24/16 06:07 Kaolin Activated Coagulation Time 213 SECONDS (94-140) White Blood Count 9.41 K/uL (4.8-10.8) Red Blood Count 4.24 M/uL (4.7-6.1) Hemoglobin 11.8 g/dL (14.0-18.0) Hematocrit 35.2 % (42-52) Mean Corpuscular Volume 83.0 fL (80-100) Mean Corpuscular Hemoglobin 27.8 pg (25-34) Mean Corpuscular Hemoglobin Concent 33.5 g/dl (32-36) Platelet Count 236 K/uL (130-400) Mean Platelet Volume 8.8 fL (7.4-10.4) Neutrophils (%) (Auto) 70.4 % Lymphocytes (%) (Auto) 17.3 % Monocytes (%) (Auto) 10.2 % Eosinophils (%) (Auto) 1.6 % Basophils (%) (Auto) 0.2 % Neutrophils # (Auto) 6.62 K/uL (1.4-6.5) Lymphocytes # (Auto) 1.63 K/uL (1.2-3.4) Monocytes # (Auto) 0.96 K/uL (0.11-0.59) Eosinophils # (Auto) 0.15 K/uL (0-0.5) Basophils # (Auto) 0.02 K/uL (0-0.2) RDW Standard Deviation 44.1 fL (36.4-46.3) RDW Coefficient of Variation 14.6 % (11.5-14.5) Immature Granulocyte % (Auto) 0.3 % Immature Granulocyte # (Auto) 0.03 K/uL (0.00-0.02) Activated Partial Thromboplast Time 26.3 SECONDS (21.0-31.0) Partial Thromboplastin Ratio 1.0 Anion Gap 9.0 mmol/L (3-11) Est Creatinine Clear Calc Drug Dose 56.9 ml/min Estimated GFR () 60.7 Estimated GFR (Non- 52.4 BUN/Creatinine Ratio 10.7 (10-20) Estimated Average Glucose 220 mg/dl Hemoglobin A1c 9.3 % (4.5-5.6) Calcium Level 8.7 mg/dl (8.5-10.1) Bedside Glucose 159 mg/dl (70-99)
[2016-12-24 11:20] VITALS: Ht 175.3 cm; Wt 110.6 kg
[2016-12-24 11:31] VITALS: BP 131/65; PULSE 66; TEMP 36.9; O2SAT 97
--- NOTE | 2016-12-24 11:52 | Discharge Summary ---
Discharge Summary Date of Service Dec 24, 2016. (Sofiya Gan M.D.) Discharge Summary Admission Date: Dec 24, 2016 at 11:15 Discharge Date: Dec 24, 2016 Discharge Disposition: Home Principal Diagnosis: NSTEMI with stent placement Problems/Secondary Diagnoses: Coronary artery disease Hypertension Congestive heart failure DM LUCILA Procedures: Cardiac cath - PCI and PATRICE placement in mid RCA ECHO Consultations: cardiology (Sofiya Gan M.D.) Medication Reconciliation New Medications: Aspirin (Aspirin EC Low Dose) 81 Mg Ectab 80 MG PO DAILY for 30 Days Losartan Potassium (Losartan Potassium) 25 Mg Tab 25 MG PO DAILY for 30 Days, #30 TBS Clopidogrel Bisulfate (Clopidogrel) 75 Mg Tab 75 MG PO QAM for 30 Days, #30 TAB Insulin Glargine (Lantus Solostar) 100 Unit/Ml Inj 24 UNITS SC QPM for 30 Days Continued Medications: Atorvastatin (Lipitor) 40 Mg Tab 20 MG PO DAILY, TAB Carvedilol (Coreg) 25 Mg Tab 25 MG PO Q12, TAB Cyanocobalamin (Cyanocobalamin) 1,000 Mcg/Ml Inj 1 ML INJ MONTHLY Cyclobenzaprine Hcl (Flexeril) 10 Mg Tab 10 MG PO Q8 PRN for BACK SPASMS, TAB Ergocalciferol (Vitamin D 98919 Unit) 50,000 Unit Cap 32699 UNIT PO WK, CAP TAKES ON FRIDAYS. Fenofibrate (Tricor) 48 Mg Tab 48 MG PO DAILY, TAB Ferrous Sulfate (Ferrous Sulfate) 325 Mg Tab 325 MG PO BID Furosemide (Lasix) 40 Mg Tab 40 MG PO DAILY, TAB Insulin Glargine (Lantus Solostar) 100 Unit/Ml Inj 35 UNITS SC BID, PEN Insulin Human Regular (Humulin R) 1 Ea Inj 5 UNITS SQ HS Ketotifen Fumarate (Ophth) (Thera Tears Allergy Eye I) 0.025 % Ap 1 DROP OP Q12 PRN for ALLERGIC REACTION Levothyroxine Sodium (Synthroid) 200 Mcg Tab 200 MCG PO DAILYBB, #30 TAB 3 Refills Magnesium Oxide (Mag-Ox) 400 Mg Tab 420 MG PO DAILY, TAB Nitroglycerin (Nitrostat) 0.4 Mg Tab 0.4 MG UT PRN, BTL NEEDED FOR CHEST PAIN : ONE TABLET UBDER THE TONGUE EVERY 5 MINUTES UP TO 3 DOSES. Oxycodone/Acetaminophen 5MG/325MG (Percocet 5MG/325MG) Tab 1 TABLET PO BID PRN for Pain, TAB PAIN Paroxetine HCl (Paroxetine) 20 Mg Tab 20 MG PO DAILY Ranitidine (Zantac) 150 Mg Tab 150 MG PO BID, TAB Tamsulosin Hcl (Flomax) 0.4 Mg Cap 0.4 MG PO HS, CAP Discontinued Medications: Aspirin (Aspirin Ec) 325 Mg Tab 325 MG PO DAILY Discharge Exam Review of Systems: Constitutional: No fever Respiratory: No shortness of breath Cardiovascular: No chest pain Abdomen: No pain, No nausea, No vomiting Neurologic: No problem reported Physical Exam: General Appearance: no apparent distress, + obese Eyes: normal inspection Neck: supple, no JVD Respiratory/Chest: lungs clear, normal breath sounds Cardiovascular: regular rate, rhythm, + systolic murmur (LSB) Abdomen / GI: normal bowel sounds, non tender, soft Extremities: no pedal edema Neurologic/Psychiatric: alert (Sofiya Gan M.D.) no concerns overnight Review of Systems: Constitutional: No fever Respiratory: No shortness of breath Cardiovascular: No chest pain Abdomen: No pain Physical Exam: General Appearance: no apparent distress Respiratory/Chest: lungs clear, no respiratory distress Cardiovascular: regular rate, rhythm Abdomen / GI: normal bowel sounds, non tender, soft Extremities: + pertinent finding (cath site intact) Neurologic/Psychiatric: alert, oriented x 3 Skin: warm/dry (Raven Ribeiro M.D.) Hospital Course Mr. Bonilla is a 81 y/o M with hx of CAD and NSTEMI in 2012 with stenting, mixed CHF (EF 50-55% and grade 2 diastolic dysfunction), DM, LBBB, pacer placed on 12/24, HTN, morbid obesity, LUCILA, hypothyroidism (following thyroidectomy for thyroid cancer) who presented with intermittent central CP accompanied by SOB and dizziness. His pain had resolved on arrival to the ER and he remained asymptomatic during the course of his stay. EKG showed ventricular pacing. Initial troponin was elevated then downtrended. He underwent cardiac catheterization with PCI and PATRICE placement in mid RCA. He did well post procedure and was hemodynamically and electrically stable prior to discharge without any chest pain. NSTEMI with h/o CAD - s/p LHC with PCI and PATRICE placed in mid RCA. -Continued on ASA and added clopidogrel for dual antiplatelet therapy for at least 1 year -Continued on Carvedilol, and atorvastatin -Heparin initially started in the ED then stopped per cardiology prior to [facility] -ECHO- EF 5-55%; nl LV systolic function; mild concentric LVH; mild-mod aortic valve stenosis and mild aortic regurg -Cardiac cath: 95% mid RCA stenosis with stent placement; Residual mild- moderate multivessel disease: 40-50% proximal LAD, 40-50% ostial and mid circumflex; Patent mid LAD/3rd Diagonal, OM1 and mid RCA stents; Normal intracardiac filling pressure -Started on ARB - Losartan 25mg on discharge -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 Remained controlled throughout admission. -Continued on Carvedilol 25mg BID CHF - stable, remained asymptomatic -Continued on Lasix and Carvedilol DM - BSG remained in 180s-200 -Can continue lantus 35 units BID and regular 5 units at home and follow up with PCP for further management -HgbA1c 9.3 on 12/24/16 -Placed on SS during admission - Novolog with goal of 120-160 and CF of 40 and Lantus 20units QPM LUCILA - CPAP ordered Hypothyroidism - continued on Levothyroxine DVT prophylaxis - heparin Full code Total Time Spent: Less than 30 minutes This includes examination of the patient, discharge planning, medication reconciliation, and communication with other providers. (Sofiya Gan M.D.) Resident Physician Supervision Note: I independently interviewed and examined the patient and verified the nicholas history and physical, reviewed labs and image studies, discussed the case with the resident Dr. Gan and agree with the findings and care plan. Total Time Spent: Greater than 30 minutes (40) (Raven Ribeiro M.D.) Discharge Instructions Please refer to the electronic Patient Visit Report (Discharge Instructions) for additional information. (Sofiya Gan M.D.) Additional Copies To Rodger Ellison MD; Kwaku Moseley M.D.
[2016-12-24] MEDS ORDERED: CZR25 PO (18:16)
[2016-12-25] MEDS ORDERED: PAROXETINE 20 MG TAB PO SCH (09:00)
== END 2016-12-24 11:41 | disposition home or self-care (01) | DRG 247 ==
LOC: EDBD 18:45 → C.EDC 18:45 → ENRESERV 21:36 → C.2T 23:00 → OBSVTOIN 12-24 11:15
PROVIDERS: ADMIT Internal Medicine; ATTEND Family Medicine
PROC: 4A023N7 Measurement of Cardiac Sampling and Pressure, Left Heart, Percutaneous Approach (ICD-10-PCS; principal; 2016-12-23 11:32)
PROC: 3E053PZ Introduction of Platelet Inhibitor into Peripheral Artery, Percutaneous Approach (ICD-10-PCS; principal; 2016-12-23 11:32)
PROC: B211YZZ Fluoroscopy of Multiple Coronary Arteries using Other Contrast (ICD-10-PCS; principal; 2016-12-23 11:32)
PROC: 027034Z Dilation of Coronary Artery, One Artery with Drug-eluting Intraluminal Device, Percutaneous Approach (ICD-10-PCS; principal; 2016-12-23 11:32)
DX: I21.4 Non-ST elevation (NSTEMI) myocardial infarction (principal); J44.1 Chronic obstructive pulmonary disease with (acute) exacerbation; E11.9 Type 2 diabetes mellitus without complications; Z95.810 Presence of automatic (implantable) cardiac defibrillator; I25.10 Atherosclerotic heart disease of native coronary artery without angina pectoris; I50.9 Heart failure, unspecified; G47.33 Obstructive sleep apnea (adult) (pediatric); I25.5 Ischemic cardiomyopathy; I25.2 Old myocardial infarction; N40.0 Benign prostatic hyperplasia without lower urinary tract symptoms; E66.01 Morbid (severe) obesity due to excess calories; Z87.891 Personal history of nicotine dependence; Z79.82 Long term (current) use of aspirin; E03.9 Hypothyroidism, unspecified; I11.0 Hypertensive heart disease with heart failure; K21.9 Gastro-esophageal reflux disease without esophagitis; Z79.4 Long term (current) use of insulin; R09.02 Hypoxemia